=== PATIENT | female | born 1965 | race Caucasian/White ===

== ENCOUNTER 2020-12-20 15:30 | Outpatient (RCR) | payer OTHER, SELFPAY ==
[2014-09-09 13:11] VITALS: BMI 39.1
== END 2021-03-04 23:59 ==
LOC: IMMUN 15:30
PROVIDERS: PCP Family Medicine; Visit Provider Family Medicine
DX: Z23 Encounter for immunization (principal)
CPT/HCPCS: 0001A; 0002A; 91300

== ENCOUNTER → 2021-07-07 15:39 | Outpatient (CLI) | payer OTHER, SELFPAY ==
--- NOTE | 2021-07-07 12:00 | COLBX_PTH ---
PATIENT: DEMI FLAHERTY LOC: [facility] U#:[id number] AGE/SX: 60/F ROOM: RE07/07/[address]: Dr. Vincent Hardy MD : 1965 BED: DIS: SPEC #: [id number] RECD: 07/07/21 15:11 STATUS: SHAYAN RERashard #: [id number] GUSTAVO: 07/07/21 12:[address]: Vincent Hardy DEPT: SURGICAL PATHOLOGY RECD BY: Samanta Huffman ENTERED: 07/08/21 08:38 SP TYPE: COLON BX OTHR DR: Dr. Campos Leon, [facility] Tissues: Ascending colon Procedures: Surgery Specimen Level IV HEADER OPERATION: Colonoscopy and polypectomy PRE-OP DIAGNOSIS: High-risk screening / polyp TISSUE SUBMITTED: Mid ascending polyp, rule out adenoma MICROSCOPIC DIAGNOSIS Mid ascending colon polyp, polypectomy: Tubulovillous adenoma. SJ:galo 07/09/2021 MICROSCOPIC DESCRIPTION Slides are reviewed. GROSS DESCRIPTION Received in fixative is one container labeled with the patient's name and designated mid ascending polyp. The specimen consists of a piece of saez-pink polyp measuring 1 x 0.6 x 0.5 cm. The specimen is bisected and submitted entirely in one cassette. / SJ:rg 07/08/21 TC:1 CPT: 72107
== END ==
PROVIDERS: PCP Family Medicine; Referring Provider Internal Medicine Gastroenterology; Visit Provider Internal Medicine Gastroenterology
DX: K63.5 Polyp of colon (principal)
CPT/HCPCS: 88305

== ENCOUNTER 2021-08-25 11:43 | Outpatient (CLI) | payer OTHER, SELFPAY ==
[2021-08-25] MEDS: 0.9% Saline Lock 10 ML Syringe IV (12:01)
[2021-08-25 12:02] VITALS: BP 144/62; PULSE 89; RESP 16; TEMP 36.8; O2SAT 99; BMI 41.5
[2021-08-25 13:24] VITALS: BP 120/62; PULSE 73; RESP 16; TEMP 36.8; O2SAT 98
[2021-08-25 14:13] VITALS: BP 125/74; PULSE 77; RESP 16; TEMP 36.5; O2SAT 97
== END 2021-08-25 14:30 | disposition home or self-care (01) ==
LOC: MS3OUT 11:43 → MS3 11:44
PROVIDERS: PCP Family Medicine; Referring Provider Nurse Practitioner Adult Health; Visit Provider Nurse Practitioner Adult Health
DX: Z23 Encounter for immunization (principal); U07.1 COVID-19
CPT/HCPCS: J7050; M0245; Q0245; A4216

== ENCOUNTER 2021-12-12 09:45 | Outpatient (CLI) | payer OTHER, SELFPAY ==
--- NOTE | 2021-12-12 09:47 | BI_ITS ---
MAMMOGRAPHY - BILATERAL SCREENING 3-D TOMOSYNTHESIS REASON FOR EXAM: Female, 56 years old. SCREENING PERTINENT HISTORY: No significant family history. TECHNIQUE: 2-D mammograms and 3-D Tomosynthesis of the breast (s) were performed. CAD was performed. COMPARISON: 09/08/2019 FINDINGS: The breast composition is heterogeneously dense that can obscure small breast masses. Scattered benign calcifications are seen. 5 mm oval circumscribed low-density mass in the retroareolar right breast at anterior depth and focal compression views are recommended for further evaluation. No dominant mass left breast. No suspicious calcifications.. No architectural distortion is identified. There is no skin thickening or retraction. BI/SCRN MAMM (CAD)W/REDD BILAT IMPRESSION: 5 mm oval circumscribed low-density mass in the retroareolar right breast and focal compression views recommended for further evaluation. ASSESSMENT CATEGORY: BIRADS Category 0: Incomplete. Need additional imaging evaluation as above. A letter regarding these results will be sent to the patient by the facility within 30 days. FOLLOW UP RECOMMENDATION: Additional imaging recommended as above. (E) Approximately 10% of breast cancers are not detected by mammography. A normal mammogram should not delay biopsy of a clinically suspicious abnormality. Electronically Signed: Sandeep Antunez MD at 16:28 EDT ,
== END 2021-12-12 23:59 | disposition home or self-care (01) ==
PROVIDERS: PCP Family Medicine; Referring Provider Family Medicine; Visit Provider Family Medicine
DX: Z12.31 Encounter for screening mammogram for malignant neoplasm of breast (principal)
CPT/HCPCS: 77063; 77067

== ENCOUNTER 2021-12-19 08:03 | Outpatient (CLI) | payer OTHER, SELFPAY ==
--- NOTE | 2021-12-19 08:57 | BI_ITS ---
MAMMOGRAPHY - UNILATERAL DIAGNOSTIC: RIGHT BREAST REASON FOR EXAM: Female, 56 years old. Abnormal screening mammogram. PERTINENT HISTORY: Non-contributory. TECHNIQUE: Compression spot views of the right breast and intracranial cavity that and mediolateral oblique projections were obtained. CAD: Full Field Digital Mammography with Computer Added Detection was performed. COMPARISON: Comparison is made with prior examination 12/12/2021. FINDINGS: Breast Composition: The breasts are heterogeneously dense, which may obscure small masses. Possible 5 mm retroareolar nodule. Correlation with ultrasound is recommended. No other significant abnormalities are identified. BI/DIAG MAMM W/CAD, UNILAT IMPRESSION: Findings suggestive of a 5 mm retroareolar nodule of the right breast. Correlation with ultrasound is recommended. ASSESSMENT CATEGORY: BIRADS Category 0: Incomplete. Need additional imaging evaluation. A letter regarding these results will be sent to the patient by the facility within 30 days. Approximately 10% of breast cancers are not detected by mammography. A normal mammogram should not delay biopsy of a clinically suspicious abnormality. Electronically Signed: Evans Wall MD at 11:02 EDT ,
--- NOTE | 2021-12-19 08:57 | US_ITS ---
STUDY: ULTRASOUND BREAST - RIGHT REASON FOR EXAM: Female, 56 years old. Abnormal screening mammogram. TECHNIQUE: Axial and longitudinal images of the RIGHT breast were performed with a high resolution ultrasound transducer. # OF IMAGES: 17 COMPARISON: Comparison is made with prior mammogram dated 12/12/2021 and 12/19/2021. FINDINGS: RIGHT Breast: The mammographic abnormality corresponds to a 5 mm x 6 mm x 6 mm hypoechoic solid nodule with increased vascularity. This is at the 12 o''clock position the breast in the retroareolar region. Biopsy recommended. US/Breast Limited Unilateral IMPRESSION: The mammographic and amount to corresponds to a 5 mm x 6 mm x 6 mm hypoechoic solid nodule with vascularity at the 12 o''clock position in the breast in the retroareolar region. Biopsy recommended. ASSESSMENT CATEGORY: BIRADS Category 4: Suspicious - Biopsy Should Be Considered. A letter regarding these results will be sent to the patient by the facility within 30 days. Electronically Signed: Evans Wall MD at 14:33 EDT ,
== END 2021-12-19 23:59 | disposition home or self-care (01) ==
PROVIDERS: PCP Family Medicine; Referring Provider Family Medicine; Visit Provider Family Medicine
DX: R92.8 Other abnormal and inconclusive findings on diagnostic imaging of breast (principal)
CPT/HCPCS: 76642; 77065

== ENCOUNTER 2022-01-01 11:07 | Outpatient (CLI) | payer OTHER, SELFPAY ==
--- NOTE | 2022-01-01 | IMM_PTH ---
PATIENT: DEMI FLAHERTY LOC: [facility] U#:[id number] AGE/SX: 56/F ROOM: RE01/01/[address]: Dr. Alli Block MD : 1965 BED: DIS: 01/01/2022 SPEC #: [id number] RECD: 01/02/22 13:18 STATUS: SHAYAN RERashard #: [id number] GUSTAVO: 01/01/22 00:[address]: Alli Block DEPT: IMMUNOHISTOCHEMISTRY RECD BY: Kenyatta Hallman ENTERED: 01/02/22 13:18 SP TYPE: IMMUNO OTHR DR: Dr. Campos Leon DO Tissues: Right breast, NOS Procedures: CK8 (initial) SMA (add) CALPONIN-1 (add) P40 (add) PHYSICIAN & INSTITUTION [place] [id number] SPECIMEN INFORMATION: Tissue Source: Right breast Clinical Info: Right breast nodule Specimen Number: [id number] CPT code: 35835, 59789 x3 METHODOLOGY: Deparaffinized sections of prefer/formalin-fixed tissue or PAP/DQ stained slides are incubated with monoclonal/polyclonal antibodies/oligonucleotide probes. Localization is made via biotin free immunoperoxidase method. Appropriate controls are performed and reacted as expected. Results on target cell population are indicated in the following table: RESULTS: ANTIBODY / CLONE RESULT CK8 (24xjecN16) positive Calponin-1 (XO675B) positive P40 (BC28) positive Actin (1A4) positive These tests were developed and their performance characteristics determined by [facility]. They may not have been cleared or approved by the U.S. Food and Drug Administration. The FDA has determined that such clearance or approval is not necessary. The above immunohistochemical/dualISH markers are ordered and reviewed by the Pathologist. INTERPRETATION: Right breast, biopsy: Consistent with fragments of intraductal papilloma. AM:galo 01/05/2022
--- NOTE | 2022-01-01 | BRBX_PTH ---
PATIENT: DEMI FLAHERTY LOC: [facility] U#:[id number] AGE/SX: 56/F ROOM: RE01/01/[address]: Dr. Alli Block MD : 1965 BED: DIS: 01/01/2022 SPEC #: [id number] RECD: 01/01/22 11:04 STATUS: SHAYAN RERashard #: [id number] GUSTAVO: 01/01/22 00:[address]: Alli Block DEPT: SURGICAL PATHOLOGY RECD BY: Samanta Huffman ENTERED: 01/01/22 12:29 SP TYPE: BREAST BX OTHR DR: Dr. Campos Leon DO Tissues: Right breast, NOS Procedures: Surgery Specimen Level IV HEADER OPERATION: Right breast biopsy PRE-OP DIAGNOSIS: Right breast nodule TISSUE SUBMITTED: Right breast tissue MICROSCOPIC DIAGNOSIS Right breast, core biopsy: Consistent with intraductal papilloma. AM:galo 01/02/2022 COMMENT Immunohistochemistry ([id number]) supports the above diagnosis. MICROSCOPIC DESCRIPTION Slides are reviewed. GROSS DESCRIPTION Received in fixative is one container labeled with the patient's name and designated right breast tissue. The specimen consists of multiple irregular and elongated fragments of saez tissue that in aggregate measure 1.5 x 1 x 0.2 cm. The specimen is totally submitted in one cassette. / AM:galo 01/01/2022 TC:5 CPT: 82484
== END 2022-01-01 23:59 | disposition home or self-care (01) ==
LOC: LABSPEC 11:08
PROVIDERS: PCP Family Medicine; Referring Provider Surgery; Visit Provider Surgery
DX: N63.10 Unspecified lump in the right breast, unspecified quadrant (principal)
CPT/HCPCS: 88305; 88341; 88342

== ENCOUNTER 2022-01-23 08:42 | Day surgery (SDC) | payer OTHER, SELFPAY ==
[2022-01-23] MEDS: Lactated Ringers 1,000 ML 15 ML IV (09:00)
[2022-01-23 09:15] VITALS: BP 141/69; PULSE 70; RESP 18; TEMP 36.6; O2SAT 98; BMI 41.9
--- NOTE | 2022-01-23 09:21 | HP.PCM_ITS ---
History and Physical Date of Admission: 01/23/22 Intake Vital Signs 01/16/22 13:54 Height 5 ft 1 in Weight: 224 lb BMI 42.3 BP 146/76 H Blood Pressure Location Rt brachial Position Sitting Respiration 18 Pulse 81 Pulse Source Monitor Temp 97.9 F Temp Source Temporal Pulse Oximetry (%) 98 Oxygen Delivery Method room air Intake Visit Reasons: DISCUSS RESULTS FROM BREAST BIOPSY Chief Complaint: Discuss surgery Folding Machine Operator Required: No Accompanied by: Is patient in pain?: No Allergies acetaminophen [From Vicodin] Allergy (Mild, Verified 01/16/22 13:57) Nausea hydrocodone [From Vicodin] Allergy (Mild, Verified 01/16/22 13:57) Nausea propoxyphene Allergy (Mild, Verified 01/16/22 13:57) Nausea codeine Adverse Reaction (Verified 01/16/22 13:57) Upset Stomach Medications meloxicam [Mobic] 15 mg PO DAILY 09/09/14 [History Confirmed 01/16/22] albuterol [Ventolin] 180 mcg INHALATION Q6H PRN 08/25/21 [History Confirmed 01/16/22] atorvastatin 20 mg PO QHS 08/25/21 [History Confirmed 01/16/22] bupropion HCl 200 mg PO DAILY 08/25/21 [History Confirmed 01/16/22] fluticasone furoate-vilanterol [Breo Ellipta] 1 inh INHALATION DAILY 08/25/21 [History Confirmed 01/16/22] insulin regular hum U-500 conc [Humulin R U-500 (Conc) Kwikpen] 14 unit SUBCUT QHS 08/25/21 [History Confirmed 01/16/22] insulin regular hum U-500 conc [Humulin R U-500 (Conc) Kwikpen] 40 unit SUBCUT DAILY 08/25/21 [History Confirmed 01/16/22] pantoprazole 40 mg PO DAILY 08/25/21 [History Confirmed 01/16/22] sucralfate 1 g PO TID 08/25/21 [History Confirmed 01/16/22] dgdgguicbc-yymgrsydsfhty-fmtdffii 50 mg-300 mg-40 mg capsule 1 cap PO BID PRN cap 12/12/21 [History Confirmed 01/16/22] hyoscyamine sulfate 0.125 mg tablet 0.125 mg PO Q6H PRN tab 12/12/21 [History Confirmed 01/16/22] lisinopril 20 mg-hydrochlorothiazide 25 mg tablet 1 tab PO DAILY 12/12/21 [History Confirmed 01/16/22] mometasone 0.1 % topical cream 1 applic TOPICAL DAILY 12/12/21 [History Confirmed 01/16/22] tramadol 50 mg tablet 50 mg PO .QID PRN tab 12/12/21 [History Confirmed 01/16/22] Subjective Details: Patient has had no issues since biopsy. 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 Localized osteoarthritis of left knee Lumbar degenerative disc disease Mixed hypercholesterolemia and hypertriglyceridemia Morbid obesity Nausea Rheumatoid arthritis Tension headache, chronic Thyroid nodule Surgical History History of back surgery History of carpal tunnel release History of right breast biopsy (~12/2021) Hx of colonoscopy S/P meniscectomy Family History Mother , [place], age 59 Sudden cardiac Myocardial infarction Hypertension Heart disease High cholesterol Father , multiple myeloma, age 50 Cancer multiple myeloma Brother Hypertension Depression Sister Hypertension Other Colon cancer Social History Smoking Status: Never smoker Tobacco: How many years used: 10 alcohol intake: former substance use type: does not use Assessment and Plan (No Qualifiers) Assessment and Plan (1) Breast mass, right: Status: Acute Plan - Dr. Alli Block MD: Patient is here to follow-up after biopsy of a right breast retroareolar mass. This came back as intraductal papilloma. I did recommend central duct excision to her as there is a risk of progression to cancer leaving a papilloma in place. I discussed this with her in detail. I discussed the risks including but not limited to bleeding, infection, recurrence of papilloma. Patient understands the risks and is willing to proceed with central ductal excision. Alli Block MD Pager: [facility] [address] [place] [address], [address] [place] [address] Office: I have re-examined the patient. There are no clinical changes since date of exam.
[2022-01-23 09:35] LABS: Bedside Glucose 234 mg/dL (74-106)
--- NOTE | 2022-01-23 10:15 | BREAST_PTH ---
PATIENT: DEMI FLAHERTY LOC: [facility] [place] U#:[id number] AGE/SX: 56/F ROOM: RE01/23/[address]: Dr. Alli Block MD : 1965 BED: DIS: 01/23/2022 SPEC #: [id number] RECD: 01/23/22 14:58 STATUS: SHAYAN RERashard #: [id number] GUSTAVO: 01/23/22 10:[address]: Alli Block DEPT: SURGICAL PATHOLOGY RECD BY: Samanta Huffman ENTERED: 01/26/22 08:22 SP TYPE: BREAST OTHR DR: Dr. Campos Leon DO Tissues: A - Right breast, NOS B - Right breast, NOS Procedures: Surgery Specimen Level IV HEADER OPERATION: Breast Central Ductal Excision PRE-OP DIAGNOSIS: Breast mass, right TISSUE SUBMITTED: A - Right breast central duct, short suture - superior, long suture - lateral, B - New superior margin MICROSCOPIC DIAGNOSIS A. Right breast, central duct, excisional biopsy: Intraductal papilloma with focal atypia. Negative for malignancy. B. New superior margin: Fibrocystic changes and intraductal hyperplasia with focal atypia. Negative for malignancy. SJ:galo 01/27/2022 COMMENT Clinical correlation and appropriate follow up are necessary. Case has been reviewed in consultation with Dr. Vanegas who concurs with the above diagnosis. IDC:AM MICROSCOPIC DESCRIPTION Slides are reviewed. GROSS DESCRIPTION A - Received in fixative is one container labeled with the patient's name and designated right breast central duct, short suture - superior, long suture - lateral. The specimen consists of a piece of fibroadipose tissue measuring 3.5 x 4 x 2 cm. The specimen is oriented by sutures as follows: short - superior, long - lateral. The specimen is inked as follows: anterior - yellow, posterior - black, superior - blue, inferior - green, medial - red and lateral - orange. Serial sections reveal a biopsy cavity with adjacent saez, indurated area measuring 0.5 cm in greatest dimension. This area is close to anterior margin of the specimen. The entire specimen is submitted in nine cassettes. Cassette 1 contains the most medial portion and cassette 9 contains the most lateral portion. B - Received in fixative is one container labeled with the patient's name and designated new superior margin. The specimen consists of a piece of fibroadipose tissue measuring 2.5 x 2 x 2 cm. One surface shows focal congested area that may represent old margin and inked blue, opposite margin is inked black that may represent new margin. The entire specimen is submitted in four cassettes. / SJ:galo 01/26/2022 TC:5 CPT: 15647, 94503
[2022-01-23] MEDS: Cefazolin 2 GM in 0.9% Normal Saline 100 ML IV (10:30)
[2022-01-23 11:06] VITALS: BP 130/108; BP 141/69; PULSE 76; RESP 18; TEMP 36.7; O2SAT 100
[2022-01-23 11:15] VITALS: BP 123/64; BP 141/69; PULSE 73; RESP 16; O2SAT 100
--- NOTE | 2022-01-23 11:15 | PCM.OPRPT ---
Problems Associated Problem List Diagnoses (1) Papilloma of right breast: Report of Operation Date of Procedure: 01/23/22 Pre-Operative Diagnosis: Papilloma the right breast Post-Operative Diagnosis: Same Surgery/Procedure Performed:: Central ductal excision of the right breast Specimen's removed: Right breast central ductal excision Description of Procedure: Patient was brought to the operating room and general anesthesia was induced. The right breast was prepped and draped in usual sterile fashion. A curvilinear incision was marked underneath the nipple at the areolar junction and injected with local anesthetic. Next an incision was made with a scalpel at the infra areolar junction to the breast and flaps were raised using electrocautery. Next the posterior nipple tissue and central ductal area was dissected free using electrocautery. It was marked and sent for pathology. The cavity was irrigated and suctioned dry and hemostasis was obtained using electrocautery. The incision was then closed with interrupted 3-0 Vicryl suture in a running 4-0 Monocryl suture. Dermabond glue was applied. Patient was then taken to PACU in stable condition. Patient tolerated the procedure well. Admit VTE Documentation VTE Mechan Device Prophylaxis: SCD's
--- NOTE | 2022-01-23 11:16 | EX.PCM.DISCH ---
Discharge Instructions Procedure Breast Surgery Diet Discharge Diet: No restrictions Activity Discharge Activity: May Not Drive (for 2-3 days or while taking narcotic pain medications.) May shower in (days): 1 Lifting Restrictions: 10 lbs for 1 week Dressing / Incision Call your doctor if your incision/area has: Continuous Slow Oozing, Sudden Increased Bleeding, Increased Pain/ Swelling, Increased Redness, Foul Smelling Discharge and Swelling at the incision site Call your doctor if you observe: Fever of 101 or Higher Suture Line Care: Avoid Pulling/Pushing and Avoid Pinching/Bending Cleanse incision/area with: Soap & Water Follow Up Care Please Follow Up With: Alli Block MD When: Please call to schedule 2 week follow up appointment. [phone] Test Results: Test results from this visit will be discussed in further detail at your follow-up appointment, if applicable. Discharge Plan Admission Attending Provider: Alli Block Primary Care Provider: Campos Leon Discharge Orders/Prescriptions Prescriptions: New oxycodone-acetaminophen [Percocet] 5-325 mg tablet 1 tab PO Q4H PRN (Reason: pain) 5 Days Qty: 20 RF: 0 ondansetron 4 mg tablet,disintegrating 4 mg PO Q6H PRN (Reason: nausea and vomiting) Qty: 7 RF: 0 No Action tramadol 50 mg tablet 50 mg PO .QID PRN (Reason: Pain) RF: 0 hyoscyamine sulfate 0.125 mg tablet 0.125 mg PO Q6H PRN (Reason: FIBER) RF: 0 mometasone 0.1 % cream 1 applic topical DAILY RF: 0 ixugjwqxwq-cxsmtlcifizdj-voyq [Fioricet] 50-300-40 mg capsule 1 cap PO BID PRN (Reason: MIGRAINES) RF: 0 lisinopril-hydrochlorothiazide 20-25 mg tablet 1 tab PO DAILY RF: 0 meloxicam [Mobic] 15 MG tablet 15 mg PO DAILY RF: 0 atorvastatin 20 mg Tablet 20 mg PO QHS RF: 0 sucralfate 1 gram Tablet 1 g PO TID RF: 0 pantoprazole 40 mg Tablet,Delayed Release (Dr/Ec) 40 mg PO DAILY RF: 0 Ventolin 90 mcg/actuation Aerosol 180 mcg INHALATION Q6H PRN (Reason: sob/wheezing) RF: 0 bupropion HCl 200 mg Tablet Sustained-Release 12 Hr 200 mg PO DAILY RF: 0 Breo Ellipta 100-25 mcg/dose Blister With Device 1 inh INHALATION DAILY RF: 0 Humulin R U-500 (Conc) Kwikpen 500 unit/mL (3 mL) Insulin Pen 40 unit SUBCUT DAILY RF: 0 Humulin R U-500 (Conc) Kwikpen 500 unit/mL (3 mL) Insulin Pen 14 unit SUBCUT QHS RF: 0 Referrals / Follow Up: Campos Leon DO [Primary Care Provider] - Disposition Disposition (needs filled in before D/C Order can be placed): Home, Self Care
[2022-01-23 11:30] VITALS: BP 124/58; BP 141/69; PULSE 69; RESP 16; O2SAT 96
[2022-01-23 11:45] VITALS: BP 109/61; BP 141/69; PULSE 68; RESP 16; TEMP 36.6; O2SAT 93
[2022-01-23 12:21] VITALS: BP 110/78; BP 141/69; PULSE 72; RESP 16; O2SAT 98
== END 2022-01-23 12:54 | disposition home or self-care (01) ==
LOC: SDC 08:43 → AC 08:45
PROVIDERS: PCP Family Medicine; Referring Provider Surgery; Visit Provider Surgery
PROC: (CPT 19120; principal; 2022-01-23 10:00)
DX: D24.1 Benign neoplasm of right breast (principal); E11.9 Type 2 diabetes mellitus without complications; K21.9 Gastro-esophageal reflux disease without esophagitis; I10 Essential (primary) hypertension; J45.909 Unspecified asthma, uncomplicated
CPT/HCPCS: 19120; 82962; 87426; 88305; J7120; J2405

== ENCOUNTER 2022-03-09 07:12 | Day surgery (SDC) | payer OTHER, SELFPAY ==
--- NOTE | 2022-03-03 10:41 | NURSING ---
At PAT phone interview, pt reports she was COVID (+) on 02/19/22 with symptoms. Symptoms has subsided. Tested negative 02/27/22. instructed to inform Dr Robles's office.
--- NOTE | 2022-03-09 07:30 | PCM.HP.BLA ---
History and Physical Date of Admission: 03/09/22 DEMI FLAHERTY, is a 56 F who presents to the office today for GERD, referred by primary care to get EGD since it has been at least 5 years since her last one. Never diagnosed w/ Esquivel's esophagus. She is on pantoprazole 40 mg QD; when she ran out of it for 2 wks and had burning reflux up to her mouth, couldn't lie flat in bad. She takes sucralfate BID-TID; has nausea if she doesn't take it. She takes hyoscyamine prn, uses it about once a month for nervous bowel, gets urgent diarrhea. No bowel issues otherwise. No melena or hematochezia. Food not getting stuck, but she does note that she is having some issues with swallowing recently--with just water or taking pills, about once a day, she feels like water almost goes into lungs, kind of chokes, coughs and then is ok. Most recent colonoscopy was 07/07/[address] Hardy, 1 cm tubulovillous adenoma. Comorbidities include depression, DM, HTN, dyslipidemia, TIEN, DDD ROS Const Constitutional: No fatigue, fever(s), headache(s), weight change, sleep problems, abnormal sleep pattern or change in appetite ENT ENT: No headache(s), difficulty swallowing, hoarseness or sore throat Resp Respiratory: No cough, hemoptysis or shortness of breath Cardio Cardiology: Positive for leg pain with exertion; No chest pain at rest or generalized swelling Gastro GI: No abdominal pain, belching, bloating, change in bowel habits, change in stool character, coffee ground emesis, constipation, cramping, diarrhea, heartburn, difficulty swallowing, feeling full early, excessive flatus, incontinent of stools, Vomiting blood/hematemesis, Blood in stool, loose stools, Black,tarry stools, nausea/dyspepsia, pain with swallowing or vomiting Genitourinary-Female: Positive for urinary incontinence Musc Musculoskeletal: Positive for joint pain, back pain, joint swelling, muscle weakness, stiffness, Arthritis, sciatica, leg pain at night and leg pain with exertion; No numbness or tingling Skin Skin: No itchy eyes or rash Neuro Neurology: No behavioral changes, confusion, headache(s), numbness or tingling Psych Psychiatric: No abnormal sleep pattern, No anxiety, No behavioral changes, No change in appetite, No confusion and No depression Endo Endocrine: No cold intolerance, fatigue, heat intolerance, increased thirst/drinking or weight change Aller/Imm Allergy/Immunologic: No food intolerance or itchy eyes Ajith/Lymp Hematologic/Lymphatic: No easy bleeding, easy bruising or enlarged lymph nodes Exam Const General: cooperative, comfortable, no acute distress, well developed and well groomed Nutritional Appearance: obese GI Inspection: obesity Palpation: soft and nontender Quality Reporting Tobacco Screening ([facility] 138) Smoking Status: Never smoker Assessment and Plan Assessment and Plan (1) GERD (gastroesophageal reflux disease): Status: Acute (2) Hx of colonic polyp: Status: Acute (3) Nausea: Status: Acute Plan - Bibiana Noble RESOURCE CONSERVATION MANAGER, RESOURCE CONSERVATION MANAGER-C: 56-year-old female with GERD, IBS, nausea, history of colon polyp. Symptoms of GERD are controlled with pantoprazole 40 mg daily. Her nausea is controlled with Carafate twice daily to 3 times daily. Intermittent IBS symptoms are managed with as needed hyoscyamine. She has diabetes, she has obesity. Consider gastroparesis. Consider fatty liver: We discussed risk of fatty liver, offered liver ultrasound, she declines for now. Consider barium swallow, she declines, would like to proceed just with the EGD at this time. Will evaluate for stricture, Esquivel's esophagus, gastritis, gastroparesis. It is scheduled for March 02, instructions reviewed. 2-week follow-up after that to discuss biopsy results with Dr. Robles. I have re-examined the patient. There are no clinical changes since date of exam.
[2022-03-09 07:37] VITALS: BP 133/79; PULSE 75; RESP 16; TEMP 36.4; O2SAT 97; BMI 41.8
[2022-03-09] MEDS: Lactated Ringers 1,000 ML 15 ML IV (07:39)
[2022-03-09] MEDS: Insulin Lispro 100 UNIT/ML INSULN.PEN 8 UNIT SC (07:44)
[2022-03-09 08:15] LABS: Bedside Glucose 310 mg/dL (74-106)
--- NOTE | 2022-03-09 08:15 | EGD_PTH ---
PATIENT: DEMI FLAHERTY LOC: EN U#:[id number] AGE/SX: 57/F ROOM: RE03/09/[address]: Dr. Yunior Robles DO : 1965 BED: DIS: 03/09/2022 SPEC #: [id number] RECD: 03/09/22 12:48 STATUS: SHAYAN RERashard #: [id number] GUSTAVO: 03/09/22 08:[address]: Yunior Robles DEPT: SURGICAL PATHOLOGY RECD BY: Samanta Huffman ENTERED: 03/09/22 13:28 SP TYPE: EGD BIOPSY OT DR: Dr. Campos Leon DO Tissues: A - Duodenum, NOS B - Gastric mucous membrane C - Gastric mucous membrane D - Esophagus, NOS Procedures: Special Stain Group II Surgery Specimen Level IV Alcian Blue/PAS (control) HEADER OPERATION: EGD (MAC), biopsy, dilation PRE-OP DIAGNOSIS: GERD TISSUE SUBMITTED: A ? Duodenum biopsy, B ? Pylorus biopsy, C ? Gastric body biopsy, D ? Distal esophagus biopsy MICROSCOPIC DIAGNOSIS A. Duodenum, biopsy: No pathologic change. B. Pylorus, biopsy: Chronic active gastritis. C. Gastric body, biopsy: Chronic gastritis. See comment. D. Distal esophagus, biopsy: Gastroesophageal junctional mucosa with chronic inflammation. Focal changes of reflux. No evidence of goblet cell metaplasia. See comment. AM:galo 03/10/2022 COMMENT C. The results of immunohistochemistry for Helicobacter pylori will be reported separately ([id number]). D. Alcian blue/PAS stain with matched control supports the above diagnosis. MICROSCOPIC DESCRIPTION Slides are reviewed. GROSS DESCRIPTION A - Received in fixative is one container labeled with the patient's name and designated duodenum biopsy. The specimen consists of two irregular fragments of light saez soft tissue that in aggregate measure 0.6 x 0.3 x 0.1 cm. The specimen is totally submitted in one cassette. B - Received in fixative is one container labeled with the patient's name and designated pylorus biopsy. The specimen consists of two irregular fragments of light saez soft tissue that in aggregate measure 0.5 x 0.2 x 0.1 cm. The specimen is totally submitted in one cassette. C - Received in fixative is one container labeled with the patient's name and designated gastric body biopsy. The specimen consists of two irregular fragments of light saez soft tissue that in aggregate measure 0.5 x 0.3 x 0.1 cm. The specimen is totally submitted in one cassette. D - Received in fixative is one container labeled with the patient's name and designated distal esophagus. The specimen consists of two irregular fragments of light saez soft tissue that in aggregate measure 0.6 x 0.3 x 0.1 cm. The specimen is totally submitted in one cassette. / SJ:rg 03/09/2022 TC:3 CPT: 47722 x4, 10614
--- NOTE | 2022-03-09 08:15 | IMM_PTH ---
PATIENT: DEMI FLAHERTY LOC: EN U#:[id number] AGE/SX: 57/F ROOM: RE03/09/[address]: Dr. Yunior Robles DO : 1965 BED: DIS: 03/09/2022 SPEC #: [id number] RECD: 03/09/22 13:40 STATUS: SHAYAN REQ #: [id number] GUSTAVO: 03/09/22 08:[address]: Yunior Robles DEPT: IMMUNOHISTOCHEMISTRY RECD BY: Kenyatta Hallman ENTERED: 03/09/22 13:40 SP TYPE: IMMUNO OTHR DR: Dr. Campos Leon DO Tissues: C - Stomach, NOS Procedures: H Pylori (initial) PHYSICIAN & INSTITUTION [place] [id number] SPECIMEN INFORMATION: Tissue Source: C ? Gastric body biopsy Clinical Info: GERD Specimen Number: [id number] CPT code: 84724 METHODOLOGY: Deparaffinized sections of prefer/formalin-fixed tissue or PAP/DQ stained slides are incubated with monoclonal/polyclonal antibodies/oligonucleotide probes. Localization is made via biotin free immunoperoxidase method. Appropriate controls are performed and reacted as expected. Results on target cell population are indicated in the following table: RESULTS: ANTIBODY / CLONE RESULT Block C H Pylori (polyclonal) negative These tests were developed and their performance characteristics determined by [facility]. They may not have been cleared or approved by the U.S. Food and Drug Administration. The FDA has determined that such clearance or approval is not necessary. The above immunohistochemical/dualISH markers are ordered and reviewed by the Pathologist. INTERPRETATION: C. Gastric body, biopsy: Negative for Helicobacter pylori organisms. AM:galo 03/11/2022
[2022-03-09 08:30] VITALS: BP 118/59; BP 133/79; PULSE 70; RESP 16; TEMP 36.9; O2SAT 95
[2022-03-09 08:35] VITALS: BP 118/62; BP 133/79; PULSE 71; RESP 16; O2SAT 94
--- NOTE | 2022-03-09 08:37 | OP.CCLET_ITS ---
06/30/2022 Campos Leon Re : Upper GI endoscopy procedure for Rhonda Powell Heidir Edward This procedure was performed on Wednesday, March 09, 2022. My impressions and recommendations are as follows: Impressions : - Esophageal plaques were found, consistent with candidiasis. - Z-line irregular, 38 cm from the incisors. Biopsied. - Benign-appearing esophageal stenosis. Dilated. - Gastritis. Biopsied. - Erythematous duodenopathy. Recommendations : - Discharge patient to home. - Resume previous diet. - Continue present medications. - Await pathology results. - Diflucan (fluconazole) 100 mg PO daily for 2 weeks. My findings are described in the full procedure note, which is enclosed. If I can be of further assistance, please feel free to contact me at . Sincerely, Yunior Friend, 03/09/2022 8:36:47 AM This report has been signed electronically.
--- NOTE | 2022-03-09 08:37 | OP.EGD_ITS ---
Patient Name: Rhonda Powell Procedure Date: 03/09/2022 7:53 AM Date of : 1965 Age: 57 Procedure: Upper GI endoscopy Indications: Epigastric abdominal pain, Dysphagia, Heartburn Providers: Yunior Robles DO Referring MD: Campos Leon Medicines: Monitored Anesthesia Care Patient Profile: This is a 57 year old female. Refer to note in patient chart for documentation of history and physical. Patient has symptoms of dysphagia with both liquids and solids and chronic heartburn. Complications: No immediate complications. Procedure: Pre-Anesthesia Assessment: - Prior to the procedure, a History and Physical was performed, and patient medications and allergies were reviewed. The risks and benefits of the procedure and the sedation options and risks were discussed with the patient. All questions were answered and informed consent was obtained. Patient identification and proposed procedure were verified by the physician in the pre-procedure area. Mental Status Examination: alert and oriented. Airway Examination: normal oropharyngeal airway and neck mobility. Respiratory Examination: clear to auscultation. CV Examination: normal. Prophylactic Antibiotics: The patient does not require prophylactic antibiotics. Prior Anticoagulants: The patient has taken no previous anticoagulant or antiplatelet agents. After reviewing the risks and benefits, the patient was deemed in satisfactory condition to undergo the procedure. The anesthesia plan was to use moderate sedation / analgesia (conscious sedation). Immediately prior to administration of medications, the patient was re-assessed for adequacy to receive sedatives. The heart rate, respiratory rate, oxygen saturations, blood pressure, adequacy of pulmonary ventilation, and response to care were monitored throughout the procedure. The physical status of the patient was re-assessed after the procedure. After obtaining informed consent, the endoscope was passed under direct vision. Throughout the procedure, the patient's blood pressure, pulse, and oxygen saturations were monitored continuously. The gastroscope was introduced through the mouth, and advanced to the second part of duodenum. The upper GI endoscopy was accomplished without difficulty. The patient tolerated the procedure well. Scope In: 8:13:01 AM Scope Out: 8:22:47 AM Total Procedure Duration Time 0 hours 9 minutes 46 seconds Findings: Diffuse, white plaques were found in the entire esophagus. The Z-line was irregular and was found 38 cm from the incisors. Biopsies were taken with a cold forceps for histology. Verification of patient identification for the specimen was done. Estimated blood loss was minimal. One benign-appearing, intrinsic stenosis was found 21 cm from the incisors. This stenosis was moderately severe and measured 6 cm (in length). A guidewire was placed and the scope was withdrawn. Dilation was performed with a Savary dilator with no resistance at 51 Fr. The dilation site was examined and showed moderate improvement in luminal narrowing. Estimated blood loss was minimal. Patchy mild inflammation characterized by erosions was found in the gastric body and in the prepyloric region of the stomach. Biopsies were taken with a cold forceps for histology. Verification of patient identification for the specimen was done. Estimated blood loss was minimal. Patchy moderately erythematous mucosa without active bleeding and with no stigmata of bleeding was found in the duodenal bulb. Impression: - Esophageal plaques were found, consistent with candidiasis. - Z-line irregular, 38 cm from the incisors. Biopsied. - Benign-appearing esophageal stenosis. Dilated. - Gastritis. Biopsied. - Erythematous duodenopathy. Recommendation: - Discharge patient to home. - Resume previous diet. - Continue present medications. - Await pathology results. - Diflucan (fluconazole) 100 mg PO daily for 2 weeks. Procedure Code(s): --- Professional --- 91563, Esophagogastroduodenoscopy, flexible, transoral; with insertion of guide wire followed by passage of dilator(s) through esophagus over guide wire 03133, 59,51, Esophagogastroduodenoscopy, flexible, transoral; with biopsy, single or multiple CPT copyright 2017 [employer]. All rights reserved. The codes documented in this report are preliminary and upon sr. payroll manager review may be revised to meet current compliance requirements. Yunior Robles DO 03/09/2022 8:36:47 AM This report has been signed electronically. Number of Addenda: 1 Note Initiated On: 03/09/2022 7:53 AM Addendum Number: 1 Addendum Date: 06/30/2022 6:25:19 AM MAC was used as sedation for this procedure. Yunior Robles DO 06/30/2022 6:25:25 AM This report has been signed electronically.
[2022-03-09 08:40] VITALS: BP 114/65; BP 133/79; PULSE 68; RESP 16; O2SAT 97
[2022-03-09 08:41] LABS: Bedside Glucose 264 mg/dL (74-106)
[2022-03-09 08:45] VITALS: BP 111/66; BP 133/79; PULSE 68; RESP 16; TEMP 36.4; O2SAT 98
[2022-03-09 09:30] VITALS: BP 133/79
== END 2022-03-09 09:44 | disposition home or self-care (01) ==
LOC: EN 07:16 → AC 07:17
PROVIDERS: PCP Family Medicine; Referring Provider Family Medicine; Visit Provider Internal Medicine Gastroenterology
PROC: 0DJ08ZZ Inspection of Upper Intestinal Tract, Via Natural or Artificial Opening Endoscopic (ICD-10-PCS; CPT 43235; principal; 2022-03-09 08:10)
DX: K21.9 Gastro-esophageal reflux disease without esophagitis (principal); E11.9 Type 2 diabetes mellitus without complications; K22.2 Esophageal obstruction; Z86.010 Personal history of colon polyps; K29.70 Gastritis, unspecified, without bleeding; R13.10 Dysphagia, unspecified; E78.5 Hyperlipidemia, unspecified; G47.33 Obstructive sleep apnea (adult) (pediatric); F32.A Depression, unspecified
CPT/HCPCS: 43239; 43248; 82962; 88305; 88313; 88342; J7120; C1769; J2405

== ENCOUNTER → 2022-07-03 | Outpatient (CLI) | payer OTHER, SELFPAY ==
--- NOTE | 2022-07-03 11:56 | CT_ITS ---
STUDY: CT SCAN LOWER EXTREMITY LEFT REASON FOR EXAM: Female, 57 years old. LEFT KNEE AMANDA RADIATION DOSAGE (If Supplied By Facility): CTDIvol = ( 18.76 ) mGy, DLP = ( 1187.60 ) mGycm. Individualized dose optimization techniques were used for this CT.? TECHNIQUE: Multiple axial tomographic images of the left lower extremity were obtained without intravenous contrast administration. Coronal and sagittal reconstruction was obtained as well. COMPARISON: None. FINDINGS: Imaging of the left hip joint was obtained. The joint spaces well-maintained. No evidence of a fracture or dislocation. Imaging of the left knee joint was obtained. There is a marked degree of joint space narrowing involving the medial compartment of the knee joint with subchondral sclerosis. There is evidence of a degenerative bony spurs along the medial and lateral condyles. There is also evidence of focal ossification in the soft tissues overlying the distal portion of the left femur laterally suggestive of possible myositis ossificans. Marked degree of joint space narrowing with subchondral cysts at the level of the patellofemoral joint. Imaging of the ankle joint was obtained. There is evidence of calcaneal spurs. Degenerative changes seen at the talar cuneiform joint. CT/Extremity Lower without Contra IMPRESSION: Moderate degree of joint space narrowing in the degenerative spurs along the medial compartment of the knee joint as well as patellofemoral joint. Findings suggestive of a myositis ossificans along the lateral anterior aspect of the distal femur. Electronically Signed: Evans Wall MD at 15:07 EDT ,
== END | disposition home or self-care (01) ==
LOC: CT 11:45
PROVIDERS: PCP Family Medicine; Visit Provider Orthopaedic Surgery
DX: M17.12 Unilateral primary osteoarthritis, left knee (principal)
CPT/HCPCS: 73700

== ENCOUNTER → 2022-07-03 | Outpatient (CLI) | payer OTHER, SELFPAY ==
--- NOTE | 2022-07-03 12:04 | RAD_ITS ---
STUDY: X-RAY CHEST REASON FOR EXAM: Female, 57 years old. preop TECHNIQUE: PA and lateral COMPARISON: None. FINDINGS: The lungs are clear and expanded. There is no demonstrated pleural abnormality. Normal size heart. Normal mediastinum and chad. Normal visualized pulmonary arteries. Normal visualized aortic arch and descending thoracic aorta. Dorsal spine demonstrates mild degenerative change.. Normal visualized ribs, clavicles, and shoulders. There is no demonstrated abnormality of the visualized soft tissue structures of the upper abdomen. RAD/Chest PA and Lateral IMPRESSION: No acute cardiopulmonary pathology. Electronically Signed: New Loyd MD at 21:58 EDT ,
[2022-07-03 12:52] LABS: Absolute Lymphocyte Count 1.75 X10^3/uL (0.83-4.51); Absolute Neutrophil Count 5.6 X10^3/uL (2.0-7.7); Basophil# 0.06 X10^3/uL; Basophil% 0.7 % (0-1); Eosinophil# 0.28 X10^3/uL; Eosinophils% 3.4 % (0-5); Hematocrit 44.6 % (37-47); Hemoglobin 14.3 g/dL (12.0-15.0); Lymphocyte # 1.75 X10^3/ul (0.83-4.51); Lymphocyte % 21.2 % (19-41); Mean Corp Hgb Conc 32.1 g/dL (32-36); Mean Corpuscular Hgb 28.7 pg (27.0-32.0); Mean Corpuscular Volume 89.4 fL (81-99); Mean Platelet Vol. 9.5 fl (6.2-12.0); Monocyte# 0.57 X10^3/uL; Monocyte% 6.9 % (0-10); NRBC Flagged by Analyzer 0 % (0-5); Neutrophil # 5.57 X10^3/uL (2.7-7.7); Neutrophil % 67.6 % (47-70); Platelet Count 203 K/mm3 (150-450); RBC Distribution Width CV 14.6 % (11.6-14.6); RBC Distribution Width SD 47.7 fl (35.1-43.9); Red Blood Count 4.99 M/mm3 (4.2-5.4); White Blood Count 8.3 K/mm3 (4.4-11.0)
[2022-07-03 13:22] LABS: Anion Gap 6 (5-15); BUN 17 mg/dL (7-18); BUN/Creat Ratio 17.3 RATIO (10-20); Calcium,Total 10.1 mg/dL (8.5-10.1); Chloride 103 mmol/L (98-107); Creatinine, Serum 0.98 mg/dL (0.55-1.02); EST Glomerular Filtration Rate 62 mL/min (>60); Est Glom Filt Rate - Afr Amer 75 mL/min (>60); Glucose 181 mg/dL (74-106); Potassium 4.5 mmol/L (3.5-5.1); Sodium Level 136 mmol/L (136-145)
[2022-07-03 13:33] LABS: Magnesium 2.4 mg/dL (1.6-2.6); Thyroid Stim Hormone (TSH) 0.72 uIU/mL (0.358-3.74)
[2022-07-03 14:18] LABS: Hemoglobin A1c 6.7 % (3.8-5.6)
== END | disposition home or self-care (01) ==
LOC: PAT 07-31 10:26
PROVIDERS: Anesthesiology; PCP Family Medicine; Visit Provider Orthopaedic Surgery
DX: Z01.818 Encounter for other preprocedural examination (principal)
CPT/HCPCS: 36415; 71046; 80048; 83036; 83735; 84443; 85025; 87081; 93005

== ENCOUNTER → 2022-07-17 | Outpatient (CLI) | payer OTHER, SELFPAY ==
--- NOTE | 2022-07-17 06:08 | ECHOCS_ITS ---
Reason For Study: Abnormal EKG Procedure This was a 2D Doppler, Color Flow transthoracic echocardiogram. The study was technically difficult. Contrast injection was performed. Exam performed in department. Left Ventricle Mildly dilated left ventricle. Mild to moderate segmental systolic dysfunction (see wall motion). The estimated ejection fraction is 40 %. Septal motion consistent with IVCD. Stage 1 diastolic dysfunction. Infero-Basal: Hypokinetic. Basal inferoseptal: Hypokinetic. Basal anteroseptal: Hypokinetic. Mid-Lateral : Hypokinetic. Mid-Posterior: Hypokinetic. Mid-Inferior: Hypokinetic. Mid- inferoseptal : Hypokinetic. Mid-anteroseptal : Hypokinetic. Inferior Edgard : Hypokinetic. Lateral Edgard : Hypokinetic. Septal Edgard : Hypokinetic. Right Ventricle Normal RV size. Normal systolic function. Atria Normal left atrium. Normal right atrium. No doppler evidence for ASD. Mitral Valve There is no mitral annular calcification. Normal mitral valve. Mild (1+) mitral valve insufficiency. Tricuspid Valve Normal tricuspid valve. Aortic Valve Trisinus/trileaflet aortic valve. Mild focal aortic valve calcification. Pulmonic Valve The pulmonic valve is not well visualized. Great Vessels Normal sized aortic root. Pericardium/Pleural No pericardial effusion. Medication 20 gauge I.V. with prn adaptor inserted into left arm. Diluted definity 2ml given slow IV push to enhance endocardial definition. MMode/2D Measurements & Calculations LVIDd: 5.3 cm IVSd: 1.3 cm Ao root diam: 3.3 cm LVIDs: 4.8 cm LVPWd: 1.2 cm LA dimension: 3.5 cm FS: 9.6 % LAV(MOD-sp4): 32.1 ml LVAd ap4: 39.1 cm2 SV(MOD-sp4): 60.3 ml LVLd ap4: 8.6 cm EDV(MOD-sp4): 144.0 ml EDV(sp4-el): 149.8 ml LVAs ap4: 27.8 cm2 LVLs ap4: 7.5 cm ESV(MOD-sp4): 83.8 ml ESV(sp4-el): 86.7 ml EF(MOD-sp4): 41.8 % EF(sp4-el): 42.1 % SV(sp4-el): 63.0 ml LA A4 area: 13.2 cm2 RA A4 area: 10.3 cm2 Time Measurements MV dec time: 0.21 sec Doppler Measurements & Calculations MV E max willis: 82.3 cm/sec Lat Peak E' Willis: 8.1 cm/sec Med Peak E' Willis: 6.3 cm/sec MV A max willis: 81.8 cm/sec E/E' lat: 10.2 E/E' med: 13.0 MV E/A: 1.0 MV V2 max: 119.4 cm/sec MV P1/2t max willis: 118.3 cm/sec Ao V2 max: 152.7 cm/sec MV max P.7 mmHg MV P1/2t: 82.8 msec Ao max P.3 mmHg MV V2 mean: 60.9 cm/sec Ao V2 mean: 106.6 cm/sec MV mean P.8 mmHg MV dec slope: 418.6 cm/sec2 Ao mean P.0 mmHg MV V2 VTI: 27.3 cm MVA(P1/2t): 2.7 cm2 Ao V2 VTI: 31.8 cm LV V1 max: 106.2 cm/sec PA V2 max: 122.4 cm/sec LV V1 max P.5 mmHg PA V2 mean: 78.2 cm/sec LV V1 mean P.7 mmHg LV V1 mean: 77.8 cm/sec LV V1 VTI: 24.2 cm ECHO/Echo Complete W/ Contrast Interpretation Summary The study was technically difficult. Contrast injection was performed. Mildly dilated left ventricle. Mild to moderate segmental systolic dysfunction (see wall motion). The estimated ejection fraction is 40 %. Septal motion consistent with IVCD. Mild (1+) mitral valve insufficiency. Mild focal aortic valve calcification. Stage 1 diastolic dysfunction. Ordering Physician: Temo Yeh Referring Physician: Campos Leon Performed By: James Landa RCS
--- NOTE | 2022-07-17 08:43 | STRESSREP ---
Stress Test Report Date: 07-17-2022 Procedure: Pharmacologic stress nuclear imaging study Indications: Abnormal ECG; preoperative cardiovascular evaluation Consent: Per the patient Procedure: The patient underwent pharmacologic (Regadenoson 0.4mg ) evaluation with a peak heart rate of 88 beats per minute (54%predicted maximal heart rate) and a resting blood pressure of 138/70 mmHg and a peak blood pressure of 138/70 mmHg. The baseline ECG demonstrated sinus rhythm; left bundle branch block. The peak pharmacologic ECG demonstrated continued sinus rhythm with left bundle branch block. There were no cardiac dysrhythmias pretest, during pharmacologic infusion, or recovery. There was no complaint of chest discomfort during pharmacologic infusion or recovery. The examination was discontinued secondary to completion of protocol. Impression: 1. Pharmacologic (Regadenoson) evaluation 2. Peak pharmacologic ECG with continued sinus rhythm with left bundle branch block. 3. There were no cardiac dysrhythmias pretest, during pharmacologic infusion, or recovery. 4. Nuclear images pending Myocardial perfusion imaging study: Technique: The patient was injected with 14.8 millicuries of technetium 99m Cardiolite and subsequently rest SPECT Cardiolite nuclear imaging was obtained in the horizontal long, vertical long, and short axis views. The patient underwent pharmacologic (Regadenoson) evaluation with a peak heart rate of 88 beats per minute (54% percent predicted maximal heart rate) and a resting blood pressure of 138/70 mmHg and a peak blood pressure of 138/70 mmHg. The patient was injected with 44.5 millicuries of technetium 99m Cardiolite and subsequently stress SPECT Cardiolite nuclear imaging was obtained in the horizontal long, vertical long, and short axis views. A gated Cardiolite study at peak stress was obtained. Interpretation: Rest and stress SPECT Cardiolite nuclear imaging status post realignment and normalization (attenuation correction not performed) demonstrate the appearance of diminished myocardial perfusion/tracer uptake in portions of the mid to distal anteroseptal/septal apical segments without significant change between rest and stress. There is diminished end-systolic thickening and brightening. The gated Cardiolite study demonstrates diminished myocardial thickening and inward wall motion. The reported LVEF is 51%. Impression: 1. Rest and stress SPECT her nuclear imaging demonstrate diminished myocardial perfusion/tracer uptake in portions of the mid to distal anteroseptal/septal apical segments potentially compatible with the underlying left bundle branch block phenomena, however, an area of previous myocardial injury/infarction cannot necessarily be excluded. There are no myocardial perfusion changes considered diagnostic for associated stress-induced myocardial ischemia. 2. The gated Cardiolite study reports an LVEF of 51%. This note was generated with [employer] software. It may contain incorrect words, spelling, and punctuation that were not noted in checking the note before signing.
== END | disposition home or self-care (01) ==
PROVIDERS: PCP Family Medicine; Referring Provider Internal Medicine Cardiovascular Disease; Visit Provider Internal Medicine Cardiovascular Disease
DX: Z01.810 Encounter for preprocedural cardiovascular examination (principal); R94.31 Abnormal electrocardiogram [ECG] [EKG]
CPT/HCPCS: 78452; 93017; 93306; A9500; Q9957; A4216; C8929; J2785

== ENCOUNTER 2022-07-30 07:00 | Day surgery (SDC) | payer OTHER, SELFPAY ==
[2022-07-29 09:15] VITALS: BMI 39.4
--- NOTE | 2022-07-30 10:22 | CL.D_ITS ---
Patient Name: DEMI FLAHERTY Study Date: 07/30/2022 Performing: Temo Yeh MD Ht: 61 inches 154.94 cm : 1965 Wt: 209 lbs 94.8 kg Age: 57 Gender: female BSA: 1.92 PROCEDURE(S) PERFORMED IC10-(49502)FFR, CORONARY OR GRAFT, INITIAL VESSEL DC02-(80829)LHC/COR CLINICAL PROFILE AND INDICATIONS Indications: Suspected CAD Heart Failure: None Stress/Imaging Stress Test w/SPECT MPI: Yes Result: Positive Intermediate RiskStress Test with SPECT MPI: Positive Intermediate Risk CONCLUSIONS 60% distal RCA; FFR 0.92, iFR 0.96 Mild LAD/LCX disease RECOMMENDATIONS Medical therapy DESCRIPTION OF PROCEDURE The patient arrived to the procedure lab. The risks and benefits of the procedure as well as a full description of our services here and current unavailability of surgical backup were fully explained to the patient and/or their significant other prior to the catheterization. The Timeout was completed, verifying the correct patient and procedure. The patient's procedural site was prepped and draped in the usual fashion. Local anesthetic was given subcutaneously to right radial region with Lidocaine 2%. Using a modified Seldinger technique, arterial access was obtained via the right radial artery, a 6Fr sheath was inserted. Right Coronary Artery selective angiography was then performed in multiple views using a 5 Fr. 4.0 [place] catheter. Left Coronary Artery selective angiography was performed in multiple views using a 5 Fr. 4.0 [place] catheter. LV to AO pullback pressures were then recorded. Right Coronary Artery selective angiography was then performed in multiple views using a 6 Fr. JR 4 Guide catheter.The arterial sheath was pulled and a TR Band was applied for hemostasis. 12cc air inserted. CORONARY ANGIOGRAPHY DOMINANCE: Right Dominant LEFT HEART ASSESSMENT LVEDP: 27 mmHg CIRCUMFLEX ARTERY: CIRCUMFLEX: Tubular 20% Proximal lesion in Circumflex RIGHT CORONARY ARTERY: RCA: Tubular 30% Mid lesion in RCA Tubular 60% Distal lesion in RCA Tubular 40% Proximal lesion in RCA COMPLICATIONS No Complications PROCEDURE MEDICATIONS Fentanyl 50 mcg IV Versed 2 mg IV Oxygen: 2 L/min via nasal cannula Adenosine drip for FFR 25.8 ml IV @ 07/30/2022 10:04:53 Heparin given IA 07/30/2022 09:30:44 Heparin 7000 unit(s) IV 07/30/2022 09:40:47 Zofran 4 mg IV 07/30/2022 09:09:49 SUMMARY OF HEMODYNAMIC DATA Time AIR REST ECG 07:23:10 AO 112/69 (89) SA 09:33:34 LV 137/20, 27 10:05:04 LV 138/22, 31 10:05:12 LVp 140/15, 26 10:05:20 AOp 140/79 (104) 10:05:27 AIR REST 10:18:47 Signed By Temo Yeh MD On 07/30/2022 10:21:26 Temo Yeh MD
== END 2022-07-30 12:30 | disposition home or self-care (01) ==
PROVIDERS: PCP Family Medicine; Referring Provider Internal Medicine Cardiovascular Disease; Visit Provider Internal Medicine Cardiovascular Disease
DX: R94.39 Abnormal result of other cardiovascular function study (principal); E11.65 Type 2 diabetes mellitus with hyperglycemia; Z79.4 Long term (current) use of insulin; G47.30 Sleep apnea, unspecified; Z82.49 Family history of ischemic heart disease and other diseases of the circulatory system; Z87.891 Personal history of nicotine dependence; I10 Essential (primary) hypertension; E78.5 Hyperlipidemia, unspecified; E66.9 Obesity, unspecified; R94.31 Abnormal electrocardiogram [ECG] [EKG]; Z86.16 Personal history of COVID-19
CPT/HCPCS: 93454; 93571; 99152; 99153; J0153; J7040; C1725; C1769; C1887; C1894; J2405; Q9967

== ENCOUNTER 2022-09-14 05:26 | Day surgery (SDC) | payer OTHER, SELFPAY ==
[2022-08-25 11:35] LABS: Absolute Lymphocyte Count 1.54 X10^3/uL (0.83-4.51); Absolute Neutrophil Count 5.6 X10^3/uL (2.0-7.7); Basophil# 0.05 X10^3/uL; Basophil% 0.6 % (0-1); Eosinophil# 0.44 X10^3/uL; Eosinophils% 5.3 % (0-5); Hemoglobin 15.1 g/dL (12.0-15.0); Lymphocyte # 1.54 X10^3/ul (0.83-4.51); Lymphocyte % 18.7 % (19-41); Mean Corp Hgb Conc 32.8 g/dL (32-36); Mean Corpuscular Hgb 29.5 pg (27.0-32.0); Mean Platelet Vol. 9.8 fl (6.2-12.0); Monocyte# 0.57 X10^3/uL; Monocyte% 6.9 % (0-10); NRBC Flagged by Analyzer 0 % (0-5); Neutrophil # 5.61 X10^3/uL (2.7-7.7); Platelet Count 216 K/mm3 (150-450); RBC Distribution Width CV 14.8 % (11.6-14.6); RBC Distribution Width SD 48.8 fl (35.1-43.9); Red Blood Count 5.11 M/mm3 (4.2-5.4); White Blood Count 8.3 K/mm3 (4.4-11.0)
[2022-08-25 12:06] LABS: Anion Gap 7 (5-15); BUN 16 mg/dL (7-18); BUN/Creat Ratio 18.5 RATIO (10-20); Calcium,Total 9.8 mg/dL (8.5-10.1); Chloride 99 mmol/L (98-107); Creatinine, Serum 0.87 mg/dL (0.55-1.02); EST Glomerular Filtration Rate 71 mL/min (>60); Est Glom Filt Rate - Afr Amer 86 mL/min (>60); Glucose 128 mg/dL (74-106); Potassium 4.5 mmol/L (3.5-5.1); Sodium Level 136 mmol/L (136-145)
[2022-08-25 12:13] LABS: Hemoglobin A1c 6.6 % (3.8-5.6)
[2022-08-25 16:14] LABS: Magnesium 2.6 mg/dL (1.6-2.6)
--- NOTE | 2022-09-01 15:47 | CASEMGMT ---
TC to pt for pre surgery RN CM assessment, pt states she will go home same day as surgery.
[2022-09-14] VITALS (10 sets, daily range): BP systolic 92–115; BP diastolic 45–67; PULSE 58–80; RESP 16–18; TEMP 36.3–36.6; O2SAT 94–100; BMI 37.9
--- NOTE | 2022-09-14 | KNEE_PTH ---
PATIENT: DEMI FLAHERTY [place] [facility] [id number] AGE/SX: 57/F ROOM: RE09/14/[address]: Dr. Dorian Landers DO : 1965 BED: DIS: 09/14/2022 SPEC #: [id number] RECD: 09/14/22 09:52 STATUS: SHAYAN REQ #: [id number] GUSTAVO: 09/14/22 00:[address]: Dorian Landers DEPT: SURGICAL PATHOLOGY RECD BY: Daniele Real ENTERED: 09/14/22 10:51 SP TYPE: TOTAL KNEE OTHR DR: DO Momo Holly PA-C Tissues: Knee, NOS Procedures: Decalcification bone/plaque Surgery Specimen Level IV HEADER OPERATION: ERAS, total knee replacement robotic arm assist PRE-OP DIAGNOSIS: Osteoarthritis left knee TISSUE SUBMITTED: Bone/tissue left knee MICROSCOPIC DIAGNOSIS Bone and tissue, left knee, total knee replacement/resection: Pieces of bone with degenerative osteoarthritic changes. SJ:galo 09/17/2022 MICROSCOPIC DESCRIPTION Slides are reviewed. GROSS DESCRIPTION Received is one container designated bone and soft tissue left knee. The specimen consists of multiple fragments of saez-yellow bone measuring in aggregate 14 x 10 x 1.5 cm. No soft tissue is identified. A number of bony fragments contain articular surfaces consistent with tibial plateau and femoral condyle and displaying prominent osteophyte formation, eburnation, and bone erosion. Ski Technician sections of bone are submitted in one cassette after decalcification. / AM:galo 09/14/2022 TC:5 CPT: 80747, 47655
[2022-09-14] MEDS: Lactated Ringers 1,000 ML 999 ML IV ×2 (06:33→09:20)
[2022-09-14] MEDS: Gabapentin 600 MG Tablet PO (06:33)
[2022-09-14] MEDS: Celecoxib 200 MG Capsule 400 MG PO (06:34)
[2022-09-14] MEDS: Acetaminophen 500 MG Tablet 1000 MG PO ×2 (06:34→14:13)
[2022-09-14] MEDS: Insulin Lispro 100 UNIT/ML INSULN.PEN SC ×3 (06:54→14:24)
[2022-09-14 07:01] LABS: Bedside Glucose 294 mg/dL (74-106)
[2022-09-14] MEDS: Lactated Ringers 1,000 ML 75 ML IV (07:21)
[2022-09-14] MEDS: Cefazolin 2 GM in 0.9% Normal Saline 100 ML IV (07:39)
[2022-09-14] MEDS: TXA 1000mg in NS100 100ml (IVPB at Incision) 660 MG IV (08:00)
[2022-09-14] MEDS: TXA 1000mg in NS100 100ml (IVPB at Closure) 660 MG IV (08:50)
--- NOTE | 2022-09-14 09:04 | RAD_ITS ---
STUDY: X-RAY - LEFT KNEE REASON FOR EXAM: Female, 57 years old. Post op TKR TECHNIQUE: 2 view(s) of the knee. COMPARISON: None. FINDINGS: Normal visualized distal femur. Normal visualized proximal tibia and fibula. Normal proximal tibiofibular articulation. The patient is status post total knee replacement. There is good alignment. Postoperative soft tissue changes RAD/Knee 1 or 2 Views IMPRESSION: Status post total knee replacement. There is good alignment. Postoperative soft tissue changes. Electronically Signed: Evans Wall MD at 11:05 EST ,
--- NOTE | 2022-09-14 09:06 | PCM.OPRPT ---
Report of Operation Date of Procedure: 09/14/22 Pre-Operative Diagnosis: OA left knee Post-Operative Diagnosis: same Surgery/Procedure Performed:: Left TKR Description of Surgical Findings:: Report of Operation Date of Procedure: 09/14/2022 Preoperative Diagnosis: [left ] knee primary osteoarthritis Postoperative Diagnosis: [left ] knee primary osteoarthritis Operation: Robotic Assisted Knee Total Arthroplasty, [left ] knee Surgeon: Dr Dorian Landers DO Licensed Psychologist: Momo Cornejo PA-C Anesthesia: spinal Anesthesiologist: Michelet Read M.D. Findings: Stable knee with good patella tracking Specimen(s): Bony cuts Complications: No intraoperative complications Estimated Blood Loss: 30 cc IV Fluids: 1000 cc crystalloid Implants Used: 1. [place] [employer] press fit CR size 1 femur 2. [place] [employer] size 1 tibia 3. 29 mm patella 4. 9 mm CS polyethylene Brief History Operative Indications: [ (57 y/o female) ] with history of [left ] knee osteoarthrosis with radiographic findings with loss of joint space, osteophyte formation and subchondral sclerosis. Failed conservative measures as mentioned in the H&P. Discussion of total knee arthroplasty as well as risk and benefits were discussed with the patient including but not limited to blood loss, DVTs, PEs, neurovascular damage, general risk of anesthesia including loss of life, and stiffness or instability were also discussed with the patient. Patient demonstrated understanding and was able to sign informed consent. Procedure: On the date of procedure, patient's [left ] lower extremity was marked in the preoperative area. The patient was then taken back to the operating room where that patient was placed on the table in the supine position. All bony prominences were identified and well-padded. Anesthesia assumed control of the C-spine and airway throughout the remainder of the procedure. A tourniquet was placed on the [left ] upper thigh and the leg was prepped in a sterile fashion. The surgeon then scrubbed at this time. Upon reentering the room, the [ left ] lower extremity was draped in a standard orthopedic fashion. A timeout was then called and everyone agreed upon the side, the site, the procedure to be performed, patient's identity and antibiotics given. Esmarch bandage was used to exsanguinate the extremity and the tourniquet was placed up to 250 mmHg with the knee in flexion. A midline skin incision was made and a sharp dissection was taken down through skin, subcutaneous tissue and fat. The standard medial parapatellar incision was made and the patella was subluxed laterally. An appropriate deep MCL release was done and the fat pad was resected. Our attention was then directed to the patella. The patella was everted and a flat resection was made. The knee was then flexed up and 2 femoral pins were placed inside the incision and 2 tibial pins were placed outside the incision in the medial tibia bicortically. Once this was completed, the 2 checkpoints in the femur and tibia were placed. Knee was then flexed up and the bony landmarks were registered. Once the was completed, the knee taken through range of motion and manually stressed allowing us to plan for an appropriate tibial cut. The robotic arm was brought into the field sterilely and checkpoint and saw were registered. Based on the patient's deformity, the tibial cut was made in [2 degrees varus ]. At this time, the tensioner was then placed in the joint and ligament tension was checked at 90 degrees and full extension. Based on the patient's ligamentous tension, appropriate adjustments were made to the operative plan and ligament releases were done. Once we were happy with our operative plan with balanced flexion and extension gaps, our attention was directed to the femur. The robot was brought into the field sterilely and registered. Posterior condylar cuts, anterior chamfer cuts and anterior cuts were appropriately made for a [size 1 ] femur. When these were completed, the saws were switched out in the distal femoral and posterior chamfer cuts were made. Protecting the soft tissue throughout this time. A [ size 1 ] base plate was selected. The knee was flexed to 90 degrees and soft tissues and posterior osteophytes were removed from the joint. 40 cc of the periarticular injection was injected into the posterior medial corner of the joint. The appropriate trials were then placed on the femur and tibia. A trial polyethylene was trialed to ensure proper balancing and stability of the knee. The appropriate tibial internal rotation was then marked with a bovie. Our attention was then directed to the patella. The lug holes were drilled and the patella trial was placed. Patellar tracking was checked and deemed appropriate. Once we were happy, lug holes were drilled for the femur and trial components were removed. The tibia was subluxed and pinned into place and the keel was punched and drilled appropriately. Final components were verified and opened. The wound was copiously irrigated with normal saline. The components were impacted into place with the tibia, femur and finally the patella. The trial poly component was placed and the knee was placed in full extension. The tracking, alignment and balance were verified and a [9 mm CS ] polyethylene component was placed. Once the final components were placed an Irrisept lavage was performed and the wound was copiously irrigated with normal saline solution and the periarticular injection was given. the wound was closed in a layer-holloway fashion using #1 vicryl interrupted sutures for the arthrotomy, 2-0 interrupted vicryl suture for the subcuticular layer and juan for final skin closure. A sterile compressive dressing was then placed. The patient was then awakened from anesthesia, transferred to the rsayre and transferred to the PACU for recovery. My physician outpatient physical therapist assistant was a vital part of this case. He was important in appropriate retraction during the case, and protection of soft tissues during bony cuts. His intimate knowledge of the case and my steps aided in safe and expedient completion of the procedure as well as appropriate position of the leg during the case. He was also vital in assisting with closure under my direct supervision. Due to the complexity of this case, robotic arm was used to assist in the surgery to improve accuracy and clinical outcomes. Post-op Plan: DVT ppx; ASA 81 mg BID, thigh high compression stockings Follow up: in office in 2 weeks for wound check PT: to start POD #0 at hospital, outpatient PT should be arranged. Preoperative antibiotic: Ancef 2 grams IV Dorian Landers DO Surgeon: Dorian Landers residential supervisor: Momo Cornejo Type of Anesthesia: Spinal Anesthesiologist: Michelet Read Estimated Blood Loss (mL): 30 cc Fluids Replaced: 1000 cc crystalloid Admit VTE Documentation VTE Present on Admission: No VTE Mechan Device Prophylaxis: SCD's and Thigh High JUANITA Hose VTE Pharm Prophylaxis ordered?: Yes
[2022-09-14 10:16] LABS: Bedside Glucose 218 mg/dL (74-106)
[2022-09-14] MEDS: Lactated Ringers 1,000 ML 125 ML IV (11:23)
[2022-09-14 14:41] LABS: Bedside Glucose 311 mg/dL (74-106)
[2022-09-14] MEDS: oxyCODONE 5 MG Tablet PO (15:22)
== END 2022-09-14 16:08 | disposition home or self-care (01) ==
LOC: SDC 05:27 → AC 05:38
PROVIDERS: Anesthesiology; PCP Family Medicine; Referring Provider Orthopaedic Surgery; Visit Provider Orthopaedic Surgery
PROC: 0SRD0JZ Replacement of Left Knee Joint with Synthetic Substitute, Open Approach (ICD-10-PCS; CPT 27447; principal; 2022-09-14 07:00)
DX: M17.12 Unilateral primary osteoarthritis, left knee (principal); M06.9 Rheumatoid arthritis, unspecified; E11.9 Type 2 diabetes mellitus without complications; Z79.4 Long term (current) use of insulin; K21.9 Gastro-esophageal reflux disease without esophagitis; I10 Essential (primary) hypertension; E78.00 Pure hypercholesterolemia, unspecified; J45.909 Unspecified asthma, uncomplicated; G47.30 Sleep apnea, unspecified; Z87.891 Personal history of nicotine dependence; Z86.16 Personal history of COVID-19
CPT/HCPCS: 27447; 36415; 73560; 80048; 82962; 83036; 83735; 85025; 87081; 88305; 88311; 97162; C1776; J7120; J2405

== ENCOUNTER → 2022-10-31 | Outpatient (CLI) | payer OTHER, SELFPAY ==
[2022-10-31 12:59] LABS: ALB/GLOB Ratio 0.9 RATIO (0.9-2.4); AST(SGOT) 17 U/L (15-37); Alanine Aminotransfer ALT/SGPT 21 U/L (13-56); Albumin, Serum 3.8 g/dL (3.2-5.0); Alkaline Phosphatase 134 U/L (45-117); Anion Gap 8 (5-15); BUN 18 mg/dL (7-18); BUN/Creat Ratio 20.8 RATIO (10-20); Calcium,Total 9.7 mg/dL (8.5-10.1); Chloride 105 mmol/L (98-107); Cholesterol 124 mg/dL (200); Creatinine, Serum 0.87 mg/dL (0.55-1.02); EST Glomerular Filtration Rate 71 mL/min (>60); Est Glom Filt Rate - Afr Amer 86 mL/min (>60); Globulin 4.3 g/dL (2.2-4.2); Glucose 196 mg/dL (74-106); High Density Lipoprotein 42 mg/dL; Potassium 4.1 mmol/L (3.5-5.1); Protein, Total 8.1 g/dL (6.4-8.2); Sodium Level 139 mmol/L (136-145); Triglycerides 205 mg/dL; Very Low Density Lipoprotein 41 mg/dL (5-40)
== END | disposition home or self-care (01) ==
LOC: LAB 11:43
PROVIDERS: PCP Family Medicine
DX: Z79.4 Long term (current) use of insulin (principal)
CPT/HCPCS: 36415; 80053; 80061; 83036

== ENCOUNTER → 2022-11-17 | Outpatient (CLI) | payer OTHER, SELFPAY ==
--- NOTE | 2022-11-17 07:56 | CT_ITS ---
PROCEDURE: CT RIGHT KNEE WITHOUT CONTRAST REASON FOR EXAM: Female, 57 years old. Preoperative planning for the [employer] Robotic knee surgery. Knee pain. TECHNIQUE: Transaxial CT of the hip, knee and ankle were obtained. Coronal and sagittal reconstruction images of the knee were provided. Individualized dose optimization techniques were used for this CT. COMPARISON: None. FINDINGS: Standard protocol for the preoperative planning for the [employer] robotic knee surgery was performed. Osteopenia with mild arthrosis of the hip and moderate tricompartmental arthrosis of the knee with osteophytes. Mild arthrosis of the tibiotalar joint. Moderate to marked arthrosis of the subtalar joint. Superior and inferior calcaneal spurs.. CT/Extremity Lower without Contra IMPRESSION: Preoperative [employer] Robotic knee surgical CT evaluation with findings as described above. Electronically Signed: Momo Archibald, at 9:46 EST ,
--- NOTE | 2022-11-17 13:05 | EKG12_ITS ---
Test Reason : PRE OP Blood Pressure : / mmHG Vent. Rate : 073 BPM Atrial Rate : 073 BPM P-R Int : 150 ms QRS Dur : 128 ms QT Int : 410 ms P-R-T Axes : 045 -63 108 degrees QTc Int : 451 ms Normal sinus rhythm Left axis deviation Left bundle branch block Abnormal ECG Confirmed by ALMA ELIZONDO, MARILU ([id number]), script editor MAYNOR SHER ([id number]) on 11/18/2022 8:58:22 AM Referred By: Dorian Landers Confirmed By:MARILU MARQUEZ MD
[2022-11-17 13:34] LABS: Hematocrit 45.9 % (37-47); Hemoglobin 14.4 g/dL (12.0-15.0); Mean Corp Hgb Conc 31.4 g/dL (32-36); Mean Corpuscular Hgb 27.9 pg (27.0-32.0); Mean Platelet Vol. 9.1 fl (6.2-12.0); Platelet Count 285 K/mm3 (150-450); RBC Distribution Width CV 14.6 % (11.6-14.6); RBC Distribution Width SD 47.6 fl (35.1-43.9); Red Blood Count 5.16 M/mm3 (4.2-5.4); White Blood Count 9.5 K/mm3 (4.4-11.0)
== END | disposition home or self-care (01) ==
PROVIDERS: Physician Assistant; PCP Family Medicine; Referring Provider Orthopaedic Surgery; Visit Provider Orthopaedic Surgery
DX: Z01.818 Encounter for other preprocedural examination (principal); M17.11 Unilateral primary osteoarthritis, right knee
CPT/HCPCS: 36415; 73700; 85027; 93005

== ENCOUNTER → 2022-12-03 | Outpatient (CLI) | payer OTHER, SELFPAY ==
--- NOTE | 2022-12-02 | KNEE_PTH ---
PATIENT: DEMI FLAHERTY LOC: [facility] U#:[id number] AGE/SX: 57/F ROOM: RE12/03/[address]: Dr. Dorian Landers DO : 1965 BED: DIS: 12/03/2022 SPEC #: [id number] RECD: 12/03/22 15:19 STATUS: SHAYAN REQ #: [id number] GUSTAVO: 12/02/22 00:[address]: Dorian Landers DEPT: SURGICAL PATHOLOGY RECD BY: Kenyatta Hallman ENTERED: 12/04/22 15:14 SP TYPE: TOTAL KNEE OTHR DR: Dr. Campos Leon, [facility] Tissues: Knee, NOS Procedures: Decalcification bone/plaque Surgery Specimen Level IV HEADER OPERATION: Right total knee arthroplasty with robotic assistance PRE-OP DIAGNOSIS: Osteoarthritis right knee TISSUE SUBMITTED: Right knee bone and tissue MICROSCOPIC DIAGNOSIS Bone and tissue, right knee, total knee replacement/resection: Pieces of bone with degenerative osteoarthritic changes. Fibroadipose tissue, fibroconnective tissue and reactive synovial tissue. GRACE:galo 12/09/2022 MICROSCOPIC DESCRIPTION Slides are reviewed. GROSS DESCRIPTION Received is one container designated right knee bone and tissue. The specimen consists of multiple fragments of saez-yellow bone measuring in aggregate 12.0 x 7.0 x 3.0 cm. Also in the specimen container are multiple fragments of yellow-white soft tissue measuring in aggregate 8.0 x 8.0 x 3.0 cm. A number of bony fragments contain articular surfaces consistent with tibial plateau and femoral condyle and displaying prominent osteophyte formation, eburnation and bone erosion. Two pieces of bone consistent with loose body are also noted measuring 1.5 and 2.5 cm in greatest dimension. Motor Setter sections are submitted in two cassettes as follows: 1 - soft tissue, 2 - bone after decalcification. / GRACE:galo 12/04/2022 TC:5 CPT: 53955, 14879
== END | disposition home or self-care (01) ==
LOC: LABSPEC 15:46
PROVIDERS: PCP Family Medicine; Referring Provider Orthopaedic Surgery; Visit Provider Orthopaedic Surgery
DX: M17.11 Unilateral primary osteoarthritis, right knee (principal)
CPT/HCPCS: 88305; 88311

== ENCOUNTER → 2023-06-19 | Outpatient (CLI) | payer OTHER, SELFPAY ==
[2023-06-19 09:27] LABS: AST(SGOT) 15 U/L (15-37); Alanine Aminotransfer ALT/SGPT 22 U/L (13-56); Alkaline Phosphatase 131 U/L (45-117); Anion Gap 3 (5-15); BUN 17 mg/dL (7-18); BUN/Creat Ratio 20.6 RATIO (10-20); CPK Total, Creatine Kinase 58 U/L (26-192); Calcium,Total 9.8 mg/dL (8.5-10.1); Chloride 103 mmol/L (98-107); Cholesterol 168 mg/dL (200); Creatinine, Serum 0.83 mg/dL (0.55-1.02); EST Glomerular Filtration Rate 75 mL/min (>60); Est Glom Filt Rate - Afr Amer 91 mL/min (>60); Glucose 175 mg/dL (74-106); High Density Lipoprotein 49 mg/dL; Potassium 5.1 mmol/L (3.5-5.1); Sodium Level 135 mmol/L (136-145); Triglycerides 174 mg/dL; Very Low Density Lipoprotein 35 mg/dL (5-40)
== END | disposition home or self-care (01) ==
LOC: LAB 08:28
PROVIDERS: PCP Family Medicine; Referring Provider Internal Medicine Cardiovascular Disease; Visit Provider Internal Medicine Cardiovascular Disease
DX: I42.8 Other cardiomyopathies (principal); E11.9 Type 2 diabetes mellitus without complications; I25.10 Atherosclerotic heart disease of native coronary artery without angina pectoris; E78.5 Hyperlipidemia, unspecified; I10 Essential (primary) hypertension
CPT/HCPCS: 36415; 80053; 80061; 82550

== ENCOUNTER → 2023-06-25 | Outpatient (CLI) | payer OTHER, SELFPAY ==
--- NOTE | 2023-06-25 13:07 | ECHOCS_ITS ---
Reason For Study: Cardiomyopathy Procedure This was a 2D Doppler, Color Flow transthoracic echocardiogram. The study was technically difficult. Contrast injection was performed. Exam performed in department. Left Ventricle Normal size and thickness. The left ventricular ejection fraction is 35 %. Stage 1 diastolic dysfunction. Severe septal hypokinesis to akinesis. Apical hypokinesis. Right Ventricle Normal right ventricle. Atria The left and right atria are normal. Mitral Valve Mild focal mitral valve calcification. Trivial mitral valve insufficiency. Tricuspid Valve Normal tricuspid valve. Aortic Valve Trisinus/trileaflet aortic valve. Pulmonic Valve The pulmonic valve is not well visualized. Great Vessels Calcified aortic root. Pericardium/Pleural No pericardial effusion. Medication 22 gauge I.V. with prn adaptor inserted into right arm. Diluted definity 1.5ml given slow IV push to enhance endocardial definition. MMode/2D Measurements & Calculations LVIDd: 5.1 cm IVSd: 0.87 cm Ao root diam: 3.0 cm LVIDs: 3.8 cm LVPWd: 0.75 cm LA dimension: 3.2 cm FS: 25.1 % LAV(MOD-bp): 21.2 ml LVAd ap4: 36.3 cm2 SV(MOD-sp4): 38.9 ml LAV(MOD-bp) Indexed: 12.1 ml/m2 LVLd ap4: 8.5 cm LAV(MOD-sp2): 26.5 ml EDV(MOD-sp4): 125.3 ml LAV(MOD-sp4): 17.2 ml EDV(sp4-el): 132.0 ml LVAs ap4: 29.1 cm2 LVLs ap4: 8.1 cm ESV(MOD-sp4): 86.4 ml ESV(sp4-el): 88.9 ml EF(MOD-sp4): 31.1 % EF(sp4-el): 32.7 % SV(sp4-el): 43.1 ml LA A4 area: 9.2 cm2 RA A4 area: 9.0 cm2 TAPSE: 1.8 cm Time Measurements MV dec time: 0.37 sec Doppler Measurements & Calculations MV E max willis: 55.1 cm/sec Lat Peak E' Willis: 6.1 cm/sec Med Peak E' Willis: 5.5 cm/sec MV A max willis: 70.7 cm/sec E/E' lat: 9.0 E/E' med: 10.0 MV E/A: 0.78 MV V2 max: 83.1 cm/sec MV P1/2t max willis: 66.8 cm/sec Ao V2 max: 154.3 cm/sec MV max P.8 mmHg MV P1/2t: 104.7 msec Ao max P.5 mmHg MV V2 mean: 44.4 cm/sec Ao V2 mean: 101.6 cm/sec MV mean P.93 mmHg MV dec slope: 187.0 cm/sec2 Ao mean P.8 mmHg MV V2 VTI: 22.2 cm MVA(P1/2t): 2.1 cm2 Ao V2 VTI: 31.0 cm AV (velocity ratio): 0.71 LV V1 max: 107.5 cm/sec PA V2 max: 100.1 cm/sec LV V1 max P.6 mmHg PA V2 mean: 67.7 cm/sec LV V1 mean P.3 mmHg LV V1 mean: 69.6 cm/sec LV V1 VTI: 21.9 cm ECHO/Echo Complete W/ Contrast Interpretation Summary The left ventricular ejection fraction is 30-35 %. Stage 1 diastolic dysfunction. Mild focal mitral valve calcification. Calcified aortic root. Ordering Physician: Temo Yeh Referring Physician: Campos Leon Performed By: James Landa RCS
== END | disposition home or self-care (01) ==
LOC: CVS 13:06
PROVIDERS: PCP Family Medicine; Referring Provider Internal Medicine Cardiovascular Disease; Visit Provider Internal Medicine Cardiovascular Disease
DX: I42.8 Other cardiomyopathies (principal); I25.10 Atherosclerotic heart disease of native coronary artery without angina pectoris; R94.31 Abnormal electrocardiogram [ECG] [EKG]; E78.5 Hyperlipidemia, unspecified
CPT/HCPCS: 93306; Q9957; A4216; C8929

== ENCOUNTER → 2023-07-24 | Outpatient (CLI) | payer OTHER, SELFPAY ==
[2023-07-24 09:22] LABS: Anion Gap 4 (5-15); BUN 14 mg/dL (7-18); BUN/Creat Ratio 16.5 RATIO (10-20); Calcium,Total 9.3 mg/dL (8.5-10.1); Chloride 104 mmol/L (98-107); Creatinine, Serum 0.85 mg/dL (0.55-1.02); EST Glomerular Filtration Rate 73 mL/min (>60); Est Glom Filt Rate - Afr Amer 88 mL/min (>60); Glucose 173 mg/dL (74-106); Potassium 4.2 mmol/L (3.5-5.1); Sodium Level 138 mmol/L (136-145)
== END | disposition home or self-care (01) ==
LOC: LAB 08:44
PROVIDERS: PCP Family Medicine; Referring Provider Physician Assistant Medical; Visit Provider Physician Assistant Medical
DX: I42.8 Other cardiomyopathies (principal)
CPT/HCPCS: 36415; 80048

== ENCOUNTER → 2024-01-01 | Outpatient (CLI) | payer OTHER, SELFPAY ==
[2024-01-01 09:59] LABS: AST(SGOT) 15 U/L (15-37); Alanine Aminotransfer ALT/SGPT 22 U/L (13-56); Alkaline Phosphatase 118 U/L (45-117); Anion Gap 5 (5-15); BUN 15 mg/dL (7-18); BUN/Creat Ratio 20.1 RATIO (10-20); Chloride 105 mmol/L (98-107); Cholesterol 174 mg/dL (200); Creatinine, Serum 0.75 mg/dL (0.55-1.02); EST Glomerular Filtration Rate 84 mL/min (>60); Est Glom Filt Rate - Afr Amer 102 mL/min (>60); Globulin 3.9 g/dL (2.2-4.2); Glucose 150 mg/dL (74-106); High Density Lipoprotein 51 mg/dL; Potassium 5.3 mmol/L (3.5-5.1); Protein, Total 7.9 g/dL (6.4-8.2); Sodium Level 138 mmol/L (136-145); Triglycerides 168 mg/dL; Very Low Density Lipoprotein 34 mg/dL (5-40)
== END | disposition home or self-care (01) ==
LOC: LAB 08:36
PROVIDERS: PCP Family Medicine; Referring Provider Internal Medicine Cardiovascular Disease; Visit Provider Internal Medicine Cardiovascular Disease
DX: I25.10 Atherosclerotic heart disease of native coronary artery without angina pectoris (principal); E78.5 Hyperlipidemia, unspecified
CPT/HCPCS: 36415; 80053; 80061

== ENCOUNTER → 2024-01-20 | Outpatient (CLI) | payer OTHER, SELFPAY ==
--- NOTE | 2024-01-20 08:51 | BI_ITS ---
MAMMOGRAPHY - BILATERAL DIAGNOSTIC REASON FOR EXAM: Female, 58 years old. 2 week history of palpable lump in the upper lateral aspect of the left breast. PERTINENT HISTORY: Non-contributory. Prior right excisional breast biopsy. TECHNIQUE: Digital bilateral breast alvin (3D mammographic acquisition) in the CC and MLO projections. 2-D mediolateral oblique (MLO) and craniocaudad (CC) views of both breasts were obtained. CAD: Full Field Digital Mammography with Computer Added Detection was performed. COMPARISON: Comparison is made with prior study December 19, 2021 and December 12, 2021. FINDINGS: Breast Composition: The breasts are heterogeneously dense, which may obscure small masses. There are no dominant masses or suspicious calcifications. The previously seen 5 mm nodule in the retroareolar region of the right breast has been resected. Stable benign-appearing bilateral axillary lymph nodes. No other significant abnormalities are identified. BI/DIAG MAMM W/CAD, BILAT IMPRESSION: Negative diagnostic mammogram. With the patient''s history of a palpable lump in the upper outer quadrant of the left breast, correlation with ultrasound is recommended. ASSESSMENT CATEGORY: BIRADS Category 0: Incomplete. Need additional imaging evaluation. A letter regarding these results will be sent to the patient by the facility within 30 days. Approximately 10% of breast cancers are not detected by mammography. A normal mammogram should not delay biopsy of a clinically suspicious abnormality. Electronically Signed: Evans Wall MD at 10:44 EDT ,
--- NOTE | 2024-01-20 09:28 | US_ITS ---
STUDY: ULTRASOUND BREAST - LEFT REASON FOR EXAM: Female, 58 years old. Swelling in the left axillary region. TECHNIQUE: Axial and longitudinal images of the LEFT breast were performed with a high resolution ultrasound transducer. # OF IMAGES: 10 COMPARISON: Comparison is made with prior mammogram done earlier in the day as well as prior sonogram of the right breast dated December 19, 2021. FINDINGS: LEFT Breast: The right axillary region was examined with ultrasound. Incidental note is made of a 1.4 cm x 0.9 cm x 0.5 cm benign-appearing lymph node. US/Breast Limited Unilateral IMPRESSION: 1.4 cm x 0.9 cm x 0.5 cm benign-appearing lymph node. ASSESSMENT CATEGORY: BIRADS Category 2: Benign. A letter regarding these results will be sent to the patient by the facility within 30 days. Electronically Signed: Evans Wall MD at 8:52 EDT ,
--- NOTE | 2024-01-20 14:39 | ECHOLC_ITS ---
Reason For Study: HYPERTENSION Procedure This was a limited 2D transthoracic echocardiogram. Exam performed in department. Left Ventricle Normal size and thickness. The left ventricular ejection fraction is 35 %. Right Ventricle Normal right ventricle. Atria The left and right atria are normal. Mitral Valve The mitral valve is structurally normal. No prolapse or stenosis seen. Tricuspid Valve Normal tricuspid valve. Aortic Valve Trisinus/trileaflet aortic valve. Pulmonic Valve The pulmonic valve is not well visualized. Great Vessels Normal sized aortic root. Pericardium/Pleural No pericardial effusion. Medication 22 gauge I.V. with prn adaptor inserted into right arm. Diluted definity 2.5ml given slow IV push to enhance endocardial definition. MMode/2D Measurements & Calculations LVIDd: 4.8 cm IVSd: 0.95 cm Ao root diam: 3.4 cm LVIDs: 3.7 cm LVPWd: 0.88 cm RVDd: 2.4 cm FS: 24.5 % LAV(MOD-bp): 45.7 ml LVAd ap4: 29.1 cm2 LVAd ap2: 23.4 cm2 LAV(MOD-bp) Indexed: 25.8 ml/m2 LVLd ap4: 8.7 cm LVLd ap2: 8.0 cm LAV(MOD-sp2): 44.5 ml EDV(MOD-sp4): 80.9 ml EDV(MOD-sp2): 55.9 ml LAV(MOD-sp4): 44.8 ml EDV(sp4-el): 82.9 ml EDV(sp2-el): 58.0 ml LVAs ap4: 18.4 cm2 LVAs ap2: 16.3 cm2 LVLs ap4: 6.4 cm LVLs ap2: 7.4 cm ESV(MOD-sp4): 44.4 ml ESV(MOD-sp2): 30.4 ml ESV(sp4-el): 44.7 ml ESV(sp2-el): 30.5 ml EF(MOD-sp4): 45.2 % EF(MOD-sp2): 45.6 % EF(sp4-el): 46.1 % SV(MOD-sp4): 36.5 ml SV(MOD-sp2): 25.5 ml SV(sp4-el): 38.2 ml LA A4 area: 15.3 cm2 RA A4 area: 12.4 cm2 ECHO/Echo Limited w/Contrast Interpretation Summary The left ventricular ejection fraction is 35 %. Severe septal hypokinesis to ak inesis. Generalized hypokinesis. No Doppler study done. Ordering Physician: Temo Yeh Referring Physician: Campos Leon Performed By: Melisa Argueta, LUIS FERNANDO, RVT
== END | disposition home or self-care (01) ==
PROVIDERS: PCP Family Medicine; Referring Provider Internal Medicine Cardiovascular Disease; Visit Provider Internal Medicine Cardiovascular Disease
DX: N63.21 Unspecified lump in the left breast, upper outer quadrant (principal); I42.8 Other cardiomyopathies; I25.10 Atherosclerotic heart disease of native coronary artery without angina pectoris; I10 Essential (primary) hypertension
CPT/HCPCS: 76642; 77062; 77066; 93308; Q9957; A4216; C8924; G0279

== ENCOUNTER → 2024-01-22 | Outpatient (CLI) | payer OTHER, SELFPAY ==
[2024-01-22 08:03] LABS: Absolute Lymphocyte Count 1.83 X10^3/uL (0.83-4.51); Absolute Neutrophil Count 3.1 X10^3/uL (2.0-7.7); Basophil# 0.07 X10^3/uL; Basophil% 1.2 % (0-1); Eosinophil# 0.49 X10^3/uL; Eosinophils% 8.3 % (0-5); Hematocrit 48.5 % (37-47); Hemoglobin 15.6 g/dL (12.0-15.0); Lymphocyte # 1.83 X10^3/ul (0.83-4.51); Lymphocyte % 31.1 % (19-41); Mean Corp Hgb Conc 32.2 g/dL (32-36); Mean Corpuscular Hgb 28.7 pg (27.0-32.0); Mean Corpuscular Volume 89.2 fL (81-99); Mean Platelet Vol. 9.3 fl (6.2-12.0); Monocyte# 0.38 X10^3/uL; Monocyte% 6.5 % (0-10); NRBC Flagged by Analyzer 0 % (0-5); Neutrophil % 52.6 % (47-70); Platelet Count 168 K/mm3 (150-450); RBC Distribution Width SD 45.2 fl (35.1-43.9); Red Blood Count 5.44 M/mm3 (4.2-5.4); White Blood Count 5.9 K/mm3 (4.4-11.0)
[2024-01-22 08:41] LABS: AST(SGOT) 18 U/L (15-37); Alanine Aminotransfer ALT/SGPT 22 U/L (13-56); Albumin, Serum 3.9 g/dL (3.2-5.0); Alkaline Phosphatase 127 U/L (45-117); Anion Gap 4 (5-15); BUN 13 mg/dL (7-18); Chloride 106 mmol/L (98-107); Cholesterol 202 mg/dL (200); Creatinine, Serum 0.72 mg/dL (0.55-1.02); EST Glomerular Filtration Rate 88 mL/min (>60); Est Glom Filt Rate - Afr Amer 106 mL/min (>60); Glucose 161 mg/dL (74-106); High Density Lipoprotein 45 mg/dL; Protein, Total 7.9 g/dL (6.4-8.2); Sodium Level 138 mmol/L (136-145); Triglycerides 292 mg/dL; Very Low Density Lipoprotein 58 mg/dL (5-40)
== END | disposition home or self-care (01) ==
LOC: LAB 07:45
PROVIDERS: PCP Family Medicine; Referring Provider Family Medicine; Visit Provider Family Medicine
DX: E78.2 Mixed hyperlipidemia (principal)
CPT/HCPCS: 36415; 80053; 80061; 85025

== ENCOUNTER 2024-03-20 06:17 | Day surgery (SDC) | payer OTHER, SELFPAY ==
[2024-03-20] VITALS (7 sets, daily range): BP systolic 99–152; BP diastolic 57–81; PULSE 59–68; RESP 16; TEMP 36.1–36.5; O2SAT 98–99; BMI 31.6
[2024-03-20] MEDS: Lactated Ringers 1,000 ML 15 ML IV (06:39)
--- NOTE | 2024-03-20 06:50 | PCM.PRE.AN2 ---
ASA Classification* ASA Classification ASA Classification: 3 Assessment & Plan Anesthesia* Anesthesia Assessment Anesthesia Assessment: Discussed sedation and/or anesthesia options, risks, benefits, and alternatives with patient/parents/legal guardian/POA. Questions invited. The patient/parents/legal guardian/POA seems to understand and agrees to proceed with anesthesia plan. Reviewed the physical assessment, medical history, allergy history and patient home medications list prior to surgery/procedure/anesthetic and documented any changes. Performed airway and anesthesia risk assessments. Anesthesia Type Anesthesia Type: MAC Pre-Assessment Diagnosis/Proposed Procedure Planned Operative Procedure(s): COLONOSCOPY Anesthesia History Anesthesia History - surgical first assistant: Anesthesia History - surgical first assistant Hx Hospitalization No 03/14/24 12:23 Any Problems With Anesthesia No 03/14/24 12:23 Cholinesterase deficiency No 03/14/24 12:23 You/Your Family Experience No 03/14/24 12:23 fever (hyperthermia) with Relationship Recent Exposure to Contagious No 03/20/24 06:37 Disease Does patient have nerve No 03/14/24 12:23 stimulator Patient instructed to have device shut off --Does patient have Pacemaker No 03/20/24 06:37 or ICD? When Was Last Pacemaker Check QUESTION #4 FULL TEXT: You/Your Family Experience fever (hyperthermia) with Anesthesia Last Oral Intake Last Oral intake: Last Oral Intake NPO since Meds taken in AM with sips of water? Meds patient instructed to take am of surgery PONV PONV - surgical first assistant: PONV - surgical first assistant Female Yes 03/14/24 12:23 HX of Motion Sickness No 03/14/24 12:23 HX of N/V After Surgery No 03/14/24 12:23 Non-Smoker Yes 03/14/24 12:23 Duration of Surgery greater No 03/14/24 12:23 than 60 minutes Number of Risk Factors 2 03/14/24 12:23 PONV Score Moderate Risk 03/14/24 12:23 Height & Weight Height & Weight: Anesthesia: Height & Weight Height 5 ft 2 in 03/20/24 06:37 Weight: 78.6 kg 03/20/24 06:37 Body Mass Index (BMI) 31.6 03/20/24 06:37 Respiratory Assessment Respiratory Assessment - surgical first assistant: Respiratory Tract Infection Hx - surgical first assistant Hx Respiratory Tract Infection No 03/14/24 12:23 STOP Sleep Apnea STOP Sleep Apnea - surgical first assistant: STOP Sleep Apnea - surgical first assistant Hx Hypertension Yes: CONTROLLED ON MED 03/14/24 12:23 Hx Sleep Apnea Yes: NON-COMPLIANT 03/14/24 12:23 CPAP Yes 03/14/24 12:23 BIPAP No 03/14/24 12:23 Do you snore loudly (louder than talking or can be heard Do you often feel tired/ fatigued/ sleepy during daytime? Has anyone observed you stop breathing during sleep? STOP Results Positive 03/14/24 12:23 QUESTION #5 FULL TEXT : Do you snore loudly (louder than talking or can be heard through closed doors)? 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 Specify any problems Hx of Preganancy in last 3 No 03/14/24 12:23 Months Nurse Filling Out Transfusion VCHRISTIN 03/14/24 12:23 & Questions: Date: 03/14/24 03/14/24 12:23 Time: 12:25 03/14/24 12:23 Patient unable to answer at this time (ie. confused, unrespo /Reproduction History /Reproductive History - surgical first assistant: /Reproductive Hx- surgical first assistant Hx Now Gestational Age (in weeks): EDC: Hx Hx Para Hx Section SAB No 03/14/24 12:23 Active Medications Active Medications: Current Medications Generic Name Dose Route Start Last Admin Trade Name Freq PRN Reason Stop Dose Admin Lactated Ringer's 1,000 mls @ 15 mls/hr 03/20/24 06:30 03/20/24 06:39 IV 15 mls/hr .Q48H EBER Administration Anesthesia Focused Assessment* Temperature: 97.7 F Pulse Rate: 68 Blood Pressure: 152/81 Respiratory Rate: 16 Pulse Ox: 99 Airway Assessment Mouth opens: >3 cm Mallampati Score: II Focused Labs Anesthesia Preop lab: CBC WBC 5.9 K/mm3 (4.4-11.0) 01/22/24 07:47 RBC 5.44 M/mm3 (4.2-5.4) H 01/22/24 07:47 Hgb 15.6 g/dL (12.0-15.0) H 01/22/24 07:47 Hct 48.5 % (37-47) H 01/22/24 07:47 Plt Count 168 K/mm3 (150-450) 01/22/24 07:47 CHEMISTRY Potassium 4.0 mmol/L (3.5-5.1) 01/22/24 07:47 Sodium 138 mmol/L (136-145) 01/22/24 07:47 Magnesium 2.6 mg/dL (1.6-2.6) 08/25/22 10:10 BUN 13 mg/dL (7-18) 01/22/24 07:47 Creatinine 0.72 mg/dL (0.55-1.02) 01/22/24 07:47 Glucose 161 mg/dL (74-106) H 01/22/24 07:47 POC Glucose 311 mg/dL (74-106) H 09/14/22 14:16 TSH 0.72 uIU/mL (0.358-3.74) 07/03/22 11:50 COAG Review of Systems (Anesthesia) ROS Narrative System reviewed and no additional complaints, except as documented. [facility] Medical History History of IBS History of Holter monitoring Diabetes mellitus Nonischemic cardiomyopathy Coronary artery disease History of echocardiogram Cardiology follow-up encounter Hypertension Obesity Preop cardiovascular exam Abnormal ECG Vaginal candidiasis Esophageal stenosis Hyperlipidemia Type 2 diabetes mellitus with hyperglycemia, with long-term current use of insulin Essential (primary) hypertension Post-menopausal Arthritis Gastritis Esophageal candidiasis PONV (postoperative nausea and vomiting) History of COVID-19 Papilloma of right breast Anxiety Alcohol use Insulin dependent diabetes mellitus Bladder disease High cholesterol Back pain Injury of head and neck Migraine headache Dietary restriction Gastric reflux Asthma Former smoker Shortness of breath on exertion CPAP (continuous positive airway pressure) dependence History of pain when walking History of edema History of stress test Intraductal papillary carcinoma Breast mass, right Rheumatoid arthritis Nausea Hx of colonic polyp History of needle biopsy Lumbar degenerative disc disease Morbid obesity Localized osteoarthritis of left knee Idiopathic hypersomnia without long sleep time Cyst of bone Chronic bronchitis Allergic rhinitis IBS (irritable bowel syndrome) Depression, endogenous Thyroid nodule Tension headache, chronic Mixed hypercholesterolemia and hypertriglyceridemia GERD (gastroesophageal reflux disease) Diabetes COVID-19 Home Medications ?Medication ?Instructions ?Recorded ?Last Taken ?Type meloxicam 15 mg tablet (Mobic) 15 mg PO DAILY INFLAMATION 09/09/14 Unknown History atorvastatin 20 mg tablet 20 mg PO QHS HLD 08/25/21 Unknown History fluticasone furoate 100 1 inh inhalation DAILY BREATHING 08/25/21 Unknown History mcg-vilanterol 25 mcg/dose inhalation powder (Breo Ellipta) pantoprazole 40 mg tablet,delayed 40 mg PO DAILY GERD 08/25/21 03/20/24 History release sucralfate 1 gram tablet 1 g PO TID GERD 08/25/21 Unknown History mometasone 0.1 % topical cream 1 applic topical DAILY PRN SCALP 12/12/21 Unknown History PSORIASIS empagliflozin 25 mg tablet 25 mg PO DAILY DM 06/29/22 Unknown History (Jardiance) ammonium lactate 12 % lotion 1 applic topical DAILY PRN dry skin 07/08/22 Unknown History methocarbamol 500 mg tablet 500 mg PO TID back spasms 07/08/22 Unknown History aspirin 81 mg tablet,delayed 81 mg PO DAILY 07/21/22 03/16/24 History release (Adult Aspirin Regimen) albuterol sulfate 90 mcg/actuation 2 puff inhalation Q4H PRN 12/22/23 Unknown History aerosol inhaler (Ventolin HFA) shortness of breath or wheezing ketoconazole 2 % shampoo 1 applic topical PRN 12/22/23 Unknown History tramadol 50 mg tablet 50 mg PO 4X/DAY PRN pain 12/22/23 Unknown History metoprolol tartrate 25 mg tablet 25 mg PO BID #180 tabs 01/21/24 03/20/24 Rx sacubitril 24 mg-valsartan 26 mg 1 tab PO BID #180 tabs 01/21/24 Unknown Rx tablet (Entresto) escitalopram oxalate 10 mg tablet 10 mg PO DAILY 01/28/24 Unknown History insulin glargine U-300 conc 300 36 unit subcut QHS 01/28/24 Unknown History unit/mL (1.5 mL) subcutaneous pen ([employer] SoloStar U-300 Insulin) semaglutide 0.25 mg or 0.5 mg (2 2 mg subcut QWEEK DM 01/28/24 03/11/24 History mg/1.5 mL) subcutaneous pen injector (Ozempic) Allergy/AdvReac Type Severity Reaction Status Date / Time hydrocodone (From Vicodin) AdvReac Mild Nausea Verified 03/20/24 06:32 propoxyphene AdvReac Mild Nausea Verified 03/20/24 06:32 codeine AdvReac Upset Verified 03/20/24 06:32 Stomach Family History Mother , [place], age 59 Sudden cardiac Myocardial infarction Hypertension Heart disease High cholesterol Father , multiple myeloma, age 50 Cancer multiple myeloma Brother Hypertension Depression Sister Hypertension Unknown Colon cancer, Onset Age: 40 Several Paternal cousins with Colon cancer in their 40's Surgical History History of implantable cardiac defibrillator (ICD) History of knee replacement History of cardiac catheterization History of esophagogastroduodenoscopy (EGD) History of breast lump/mass excision History of right breast biopsy (~12/2021) History of back surgery (~1975) Hx of colonoscopy (~2020) S/P meniscectomy (~06/2012) History of carpal tunnel release Social History household members: spouse Smoking Status: Former smoker quit date: 06/13/02 pack-years: 10 Tobacco: How many years used: 10 alcohol intake: current alcohol intake frequency: holidays/special occasions only substance use type: does not use caffeine: Yes Type: coffee Number of servings: 1
--- NOTE | 2024-03-20 07:02 | HP.PCM_ITS ---
[facility] - General General Date of Admission: 03/20/24 Date of Service: 03/20/24 Chief Complaint: Screening colonoscopy [facility] Mackenzie FLAHERTY, is a 59 F who presents today for screening colonoscopy. She had a colonoscopy in 2000 where she had multiple polyps removed during that time. She carries a past medical history of CAD, nonischemic cardiomyopathy, diabetes, hypertension, hyperlipidemia, type 2 diabetes and mild gastroesophageal reflux disease. She is not having any problems at this time. Blood pressure stable on she does not have any nausea. She does take aspirin 81 mg on a daily basis along with insulin. She was started on semaglutide also recently. She been tolerating it without any problems. [facility] Medical History History of IBS History of Holter monitoring Diabetes mellitus Nonischemic cardiomyopathy Coronary artery disease History of echocardiogram Cardiology follow-up encounter Hypertension Obesity Preop cardiovascular exam Abnormal ECG Vaginal candidiasis Esophageal stenosis Hyperlipidemia Type 2 diabetes mellitus with hyperglycemia, with long-term current use of insulin Essential (primary) hypertension Post-menopausal Arthritis Gastritis Esophageal candidiasis PONV (postoperative nausea and vomiting) History of COVID-19 Papilloma of right breast Anxiety Alcohol use Insulin dependent diabetes mellitus Bladder disease High cholesterol Back pain Injury of head and neck Migraine headache Dietary restriction Gastric reflux Asthma Former smoker Shortness of breath on exertion CPAP (continuous positive airway pressure) dependence History of pain when walking History of edema History of stress test Intraductal papillary carcinoma Breast mass, right Rheumatoid arthritis Nausea Hx of colonic polyp History of needle biopsy Lumbar degenerative disc disease Morbid obesity Localized osteoarthritis of left knee Idiopathic hypersomnia without long sleep time Cyst of bone Chronic bronchitis Allergic rhinitis IBS (irritable bowel syndrome) Depression, endogenous Thyroid nodule Tension headache, chronic Mixed hypercholesterolemia and hypertriglyceridemia GERD (gastroesophageal reflux disease) Diabetes COVID-19 Home Medications ?Medication ?Instructions ?Recorded ?Last Taken ?Type meloxicam 15 mg tablet (Mobic) 15 mg PO DAILY INFLAMATION 09/09/14 Unknown History atorvastatin 20 mg tablet 20 mg PO QHS HLD 08/25/21 Unknown History fluticasone furoate 100 1 inh inhalation DAILY BREATHING 08/25/21 Unknown History mcg-vilanterol 25 mcg/dose inhalation powder (Breo Ellipta) pantoprazole 40 mg tablet,delayed 40 mg PO DAILY GERD 08/25/21 03/20/24 History release sucralfate 1 gram tablet 1 g PO TID GERD 08/25/21 Unknown History mometasone 0.1 % topical cream 1 applic topical DAILY PRN SCALP 12/12/21 Unknown History PSORIASIS empagliflozin 25 mg tablet 25 mg PO DAILY DM 06/29/22 Unknown History (Jardiance) ammonium lactate 12 % lotion 1 applic topical DAILY PRN dry skin 07/08/22 Unknown History methocarbamol 500 mg tablet 500 mg PO TID back spasms 07/08/22 Unknown History aspirin 81 mg tablet,delayed 81 mg PO DAILY 07/21/22 03/16/24 History release (Adult Aspirin Regimen) albuterol sulfate 90 mcg/actuation 2 puff inhalation Q4H PRN 12/22/23 Unknown History aerosol inhaler (Ventolin HFA) shortness of breath or wheezing ketoconazole 2 % shampoo 1 applic topical PRN 12/22/23 Unknown History tramadol 50 mg tablet 50 mg PO 4X/DAY PRN pain 12/22/23 Unknown History metoprolol tartrate 25 mg tablet 25 mg PO BID #180 tabs 01/21/24 03/20/24 Rx sacubitril 24 mg-valsartan 26 mg 1 tab PO BID #180 tabs 01/21/24 Unknown Rx tablet (Entresto) escitalopram oxalate 10 mg tablet 10 mg PO DAILY 01/28/24 Unknown History insulin glargine U-300 conc 300 36 unit subcut QHS 01/28/24 Unknown History unit/mL (1.5 mL) subcutaneous pen ([employer] SoloStar U-300 Insulin) semaglutide 0.25 mg or 0.5 mg (2 2 mg subcut QWEEK DM 01/28/24 03/11/24 History mg/1.5 mL) subcutaneous pen injector (Ozempic) Allergy/AdvReac Type Severity Reaction Status Date / Time hydrocodone (From Vicodin) AdvReac Mild Nausea Verified 03/20/24 06:32 propoxyphene AdvReac Mild Nausea Verified 03/20/24 06:32 codeine AdvReac Upset Verified 03/20/24 06:32 Stomach Family History Mother , [place], age 59 Sudden cardiac Myocardial infarction Hypertension Heart disease High cholesterol Father , multiple myeloma, age 50 Cancer multiple myeloma Brother Hypertension Depression Sister Hypertension Unknown Colon cancer, Onset Age: 40 Several Paternal cousins with Colon cancer in their 40's Surgical History History of implantable cardiac defibrillator (ICD) History of knee replacement History of cardiac catheterization History of esophagogastroduodenoscopy (EGD) History of breast lump/mass excision History of right breast biopsy (~12/2021) History of back surgery (~1975) Hx of colonoscopy (~2020) S/P meniscectomy (~06/2012) History of carpal tunnel release Social History household members: spouse Smoking Status: Former smoker quit date: 06/13/02 pack-years: 10 Tobacco: How many years used: 10 alcohol intake: current alcohol intake frequency: holidays/special occasions only substance use type: does not use caffeine: Yes Type: coffee Number of servings: 1 ROS Review of Systems ROS Unobtainable: other Constitutional Constitutional: Denies fatigue, fever(s), poor appetite, weight gain or weight loss ENT HEENT: Denies mouth lesions Cardiovascular Cardiovascular: Denies abdominal bloating, abdominal edema or abdominal pain Respiratory/Chest Respiratory/Chest: Denies change in mental status, change in phlegm color, chest congestion or chest tightness Gastrointestinal Gastrointestinal: Denies belching, bloating, change in bowel habits, change in stool character, chewing difficulty, coffee ground emesis, constipation, cramping, diarrhea, dyspepsia, dysphagia, early satiety, excessive flatus, fecal incontinence, heartburn, hematemesis, hematochezia, hemorrhoids, loose stools, melena, nausea, odynophagia, rectal bleeding, tenesmus, vomiting or weight changes Genitourinary Genitourinary: Denies abdominal discomfort, burning urination or itching Musculoskeletal Musculoskeletal: Reports as per HPI; Denies muscle weakness or myalgias Integumentary Integumentary: Denies jaundice Neurologic Neurologic: Denies lack of coordination or weakness Psychiatric Psychiatric: Denies confusion, depression, memory loss, mood swings, paranoia or suicidal ideation Endocrine Endocrinology: Denies systems reviewed and no addt'l complaints, except as documented Hematologic/Lymphatic Hematologic/Lymphatic: Denies anemia, easy bleeding, easy bruising or lymphadenopathy Allergic/Immunologic Allergic/Immunologic: Denies systems reviewed and no addt'l complaints, except as documented Vital Signs Vital Signs Vital Signs: 03/20/24 06:37 03/20/24 06:37 03/20/24 06:51 Temperature 97.7 F L 97.7 F L Temperature Source Temporal Pulse Rate 68 68 Respiratory Rate 16 16 Respiratory Pattern Normal Blood Pressure 152/81 H 152/81 H Blood Pressure Mean 104 Blood Pressure Source Monitor Blood Pressure Position Semi-Fowlers Blood Pressure Location Right Arm Pulse Ox 99 99 Oxygen Delivery Method Room Air Weight Weight: 173 lb 4.533 oz Body Mass Index (BMI) 31.6 Physical Exam Const alert General Appearance: cooperative Orientation / Consciousness: oriented to person HEENT hearing grossly normal bilaterally Head and Scalp: normal to inspection Face and Sinus: face symmetric Nose: external nose normal Mouth: oral and palatal mucosa normal Eyes conjunctivae normal General Eye: normal appearance of both eyes Neck full ROM General: normal visual inspection Lymph Lymphatic: no lymphadenopathy noted Chest inspection of chest normal and palpation of chest normal Chest: symmetrical chest wall rise Resp normal respiratory effort Effort and Inspection: able to speak in complete sentences Cardio regular rate GI non-distended Percussion: normal to percussion Rectal Exam: deferred Neuro Speech: speech normal Gait (Neuro): normal gait Assessment & Plan Assessment/Plan (1) Encounter for screening for malignant neoplasm of colon: PLAN: She was explained alternatives, risk, benefits including not withstanding bleeding, infection, sepsis, perforation, need for emergent urgent . She will have an ASA of 3.
--- NOTE | 2024-03-20 07:27 | PCM.POST.ANE ---
Anesthesia: Postop Eval I Current Vital Signs Temperature: 97 F Pulse Rate: 60 Blood Pressure: 99/58 Respiratory Rate: 16 Pulse Ox: 98 Oxygen Delivery Method: Room Air Assessment Airway patent: Yes Spontaneous unlabored respirations: Yes Mental status: Asleep nausea: No Vomiting: No Anesthesia Complication: No Fluid Hydration Crystalloid volume administer (ml): 600 Total IV fluid infused: 600 Progress Note Anesthesia document: Postop Eval 1 completed: Yes
--- NOTE | 2024-03-20 07:30 | OP.COLON_ITS ---
Patient Name: Rhonda Powell Procedure Date: 03/20/2024 7:05 AM Date of : 1965 Age: 59 Procedure: Colonoscopy Indications: Follow-up for history of adenomatous polyps in the colon Providers: Yunior Robles DO Medicines: Monitored Anesthesia Care Patient Profile: This is a 59 year old female. Refer to note in patient chart for documentation of history and physical. Last Colonoscopy: 3 years ago. Complications: No immediate complications. Procedure: Pre-Anesthesia Assessment: - Prior to the procedure, a History and Physical was performed, and patient medications and allergies were reviewed. The patient is competent. The risks and benefits of the procedure and the sedation options and risks were discussed with the patient. All questions were answered and informed consent was obtained. Patient identification and proposed procedure were verified by the physician in the pre-procedure area. Mental Status Examination: alert and oriented. Airway Examination: normal oropharyngeal airway and neck mobility. Respiratory Examination: clear to auscultation. CV Examination: normal. Prophylactic Antibiotics: The patient does not require prophylactic antibiotics. Prior Anticoagulants: The patient has taken no anticoagulant or antiplatelet agents. ASA Grade Assessment: II - A patient with mild systemic disease. After reviewing the risks and benefits, the patient was deemed in satisfactory condition to undergo the procedure. The anesthesia plan was to use monitored anesthesia care (MAC). Immediately prior to administration of medications, the patient was re-assessed for adequacy to receive sedatives. The heart rate, respiratory rate, oxygen saturations, blood pressure, adequacy of pulmonary ventilation, and response to care were monitored throughout the procedure. The physical status of the patient was re-assessed after the procedure. After I obtained informed consent, the scope was passed under direct vision. Throughout the procedure, the patient's blood pressure, pulse, and oxygen saturations were monitored continuously. The colonoscope was introduced through the anus and advanced to the cecum, identified by appendiceal orifice and ileocecal valve. The colonoscopy was performed without difficulty. The patient tolerated the procedure well. The quality of the bowel preparation was adequate. The ileocecal valve, appendiceal orifice, and rectum were photographed. Scope In: 7:11:56 AM Scope Withdrawal Time 0 hours 7 minutes 49 seconds Scope Out: 7:23:21 AM Total Procedure Duration Time 0 hours 11 minutes 25 seconds Findings: The perianal and digital rectal examinations were normal. Multiple small and large-mouthed diverticula were found in the recto-sigmoid colon and sigmoid colon. The exam was otherwise without abnormality on direct and retroflexion views. Impression: - Diverticulosis in the recto-sigmoid colon and in the sigmoid colon. - The examination was otherwise normal on direct and retroflexion views. - No specimens collected. Recommendation: - Discharge patient to home. - Resume previous diet. - Continue present medications. - Repeat colonoscopy in 5 years for surveillance. Procedure Code(s): --- Professional --- 11350, Colonoscopy, flexible; diagnostic, including collection of specimen(s) by brushing or washing, when performed (separate procedure) CPT copyright 2021 [employer]. All rights reserved. The codes documented in this report are preliminary and upon home care giver review may be revised to meet current compliance requirements. Yunior Robles DO 03/20/2024 7:29:46 AM This report has been signed electronically. Number of Addenda: 0 Note Initiated On: 03/20/2024 7:05 AM
--- NOTE | 2024-03-20 07:30 | OP.CCLET_ITS ---
03/20/2024 [facility] Leon Re : Colonoscopy procedure for Rhonda [place] Leon This procedure was performed on Wednesday, March 20, 2024. My impressions and recommendations are as follows: Impressions : - Diverticulosis in the recto-sigmoid colon and in the sigmoid colon. - The examination was otherwise normal on direct and retroflexion views. - No specimens collected. Recommendations : - Discharge patient to home. - Resume previous diet. - Continue present medications. - Repeat colonoscopy in 5 years for surveillance. My findings are described in the full procedure note, which is enclosed. If I can be of further assistance, please feel free to contact me at . Sincerely, Yunior Robles, 03/20/2024 7:29:46 AM This report has been signed electronically.
[2024-03-20 07:47] LABS: Bedside Glucose 147 mg/dL (74-106)
--- NOTE | 2024-03-20 13:02 | PCM.POSTANE2 ---
Anesthesia Postop Eval I Sum Postop Eval Completion status Anesthesia document: Postop Eval 1 completed: Yes Anesthesia Postop Eval I Summary Anesthesia Postop Eval I Summary: Anesthesia Postop Eval I: Assessment Summary Airway patent Yes 03/20/24 07:30 [email or web address] Spontaneous unlabored Yes 03/20/24 07:30 [email or web address] respirations Mental status Asleep 03/20/24 07:30 [email or web address] nausea No 03/20/24 07:30 [email or web address] Vomiting No 03/20/24 07:30 [email or web address] Anesthesia Postop Eval I: Fluid Summary Crystalloid volume administer 600 03/20/24 07:30 [email or web address] (ml) Colloids volume administered ( ml) Blood Product volume administered (ml) Total IV fluid infused 600 03/20/24 07:30 [email or web address] Anesthesia Postop Eval I: Summary Notes Anesthesia Complication No 03/20/24 07:30 [email or web address] Anesthesia Complication Comment: Post-operative progress note Anesthesia: Postop Eval II Evaluation Mental status: Awake and Calm Pain Level: 0 nausea: No Vomiting: No Complications Anesthesia Complication: No
== END 2024-03-20 07:57 | disposition home or self-care (01) ==
LOC: EN 06:18 → AC 06:18
PROVIDERS: PCP Family Medicine; Referring Provider Family Medicine; Visit Provider Internal Medicine Gastroenterology
PROC: 0DJD8ZZ Inspection of Lower Intestinal Tract, Via Natural or Artificial Opening Endoscopic (ICD-10-PCS; CPT 45378; principal; 2024-03-20 07:25)
DX: Z12.11 Encounter for screening for malignant neoplasm of colon (principal); F33.2 Major depressive disorder, recurrent severe without psychotic features; I42.8 Other cardiomyopathies; Z79.4 Long term (current) use of insulin; E11.9 Type 2 diabetes mellitus without complications; K57.30 Diverticulosis of large intestine without perforation or abscess without bleeding; J45.909 Unspecified asthma, uncomplicated; K21.9 Gastro-esophageal reflux disease without esophagitis; I10 Essential (primary) hypertension; I25.10 Atherosclerotic heart disease of native coronary artery without angina pectoris; E78.00 Pure hypercholesterolemia, unspecified; Z79.84 Long term (current) use of oral hypoglycemic drugs; Z79.82 Long term (current) use of aspirin; Z79.899 Other long term (current) drug therapy; Z79.51 Long term (current) use of inhaled steroids; Z86.010 Personal history of colon polyps; Z86.16 Personal history of COVID-19; Z95.810 Presence of automatic (implantable) cardiac defibrillator; Z80.0 Family history of malignant neoplasm of digestive organs; Z87.891 Personal history of nicotine dependence
CPT/HCPCS: 45378; 82962; J7120; J2405

== ENCOUNTER → 2024-08-11 | Outpatient (CLI) | payer OTHER, SELFPAY ==
--- NOTE | 2024-08-11 09:33 | BI_ITS ---
MAMMOGRAPHY - BILATERAL DIAGNOSTIC REASON FOR EXAM: Female, 59 years old. Recent pacemaker placement and the palpable lump in the region of the left axilla. PERTINENT HISTORY: Non-contributory. TECHNIQUE: Digital bilateral breast alvin (3D mammographic acquisition) in the CC and MLO projections. 2-D mediolateral oblique (MLO) and craniocaudad (CC) views of both breasts were obtained. CAD: Full Field Digital Mammography with Computer Added Detection was performed. COMPARISON: Comparison is made with prior study of January 20, 2024 and December 19, 2021. FINDINGS: Breast Composition: The breasts are heterogeneously dense, which may obscure small masses. There are no dominant masses or suspicious calcifications. A battery pack from a pacemaker seen in the left axilla. No other significant abnormalities are identified. BI/DIAG MAMM W/CAD, BILAT IMPRESSION: Stable bilateral diagnostic mammogram. With the patient''s history of a palpable lump in the left axilla, correlation with ultrasound recommended. ASSESSMENT CATEGORY: BIRADS Category 0: Incomplete. Need additional imaging evaluation. A letter regarding these results will be sent to the patient by the facility within 30 days. Approximately 10% of breast cancers are not detected by mammography. A normal mammogram should not delay biopsy of a clinically suspicious abnormality. Electronically Signed: Evans Wall MD at 10:55 EST ,
--- NOTE | 2024-08-11 10:41 | US_ITS ---
STUDY: ULTRASOUND BREAST - LEFT REASON FOR EXAM: Female, 59 years old. Palpable left axillary lump. Scar from recent pacemaker placement. TECHNIQUE: Axial and longitudinal images of the LEFT breast were performed with a high resolution ultrasound transducer. # OF IMAGES: 34 COMPARISON: Comparison is made with prior mammogram done earlier today. FINDINGS: LEFT Breast: A battery pack from a pacemaker device is seen in the left axilla. Incidental note is made of a 2.1 cm x 2.3 cm x 0.7 cm lymph node with a central fatty hilum in the left axilla. Adjacent to this, there is also evidence of a 3.5 cm x 2.6 cm x 1.6 cm hypoechoic fluid collection most likely attempting post operative resolving hematoma. US/Breast Limited Unilateral IMPRESSION: Findings suggestive of benign appearing lymph node in the left axilla as well as a 3.5 cm x 2.6 cm x 1.6 cm fluid collection most likely representing a post procedure hematoma. ASSESSMENT CATEGORY: BIRADS Category 2: Benign. A letter regarding these results will be sent to the patient by the facility within 30 days. Electronically Signed: Evans Wall MD at 11:38 EST ,
== END | disposition home or self-care (01) ==
LOC: OPBI 09:31
PROVIDERS: PCP Family Medicine; Referring Provider Family Medicine; Visit Provider Family Medicine
DX: N63.20 Unspecified lump in the left breast, unspecified quadrant (principal)
CPT/HCPCS: 76642; 77062; 77066; G0279

== ENCOUNTER → 2024-09-02 | Outpatient (CLI) | payer OTHER, SELFPAY ==
[2024-09-02 11:08] LABS: Cholesterol 170 mg/dL (200); High Density Lipoprotein 48 mg/dL; Triglycerides 176 mg/dL; Very Low Density Lipoprotein 35 mg/dL (5-40)
[2024-09-02 11:14] LABS: ALB/GLOB Ratio 1.1 RATIO (0.9-2.4); AST(SGOT) 17 U/L (15-37); Alanine Aminotransfer ALT/SGPT 22 U/L (13-56); Alkaline Phosphatase 120 U/L (45-117); Anion Gap 6 (5-15); BUN 15 mg/dL (7-18); BUN/Creat Ratio 24.6 RATIO (10-20); Calcium,Total 9.5 mg/dL (8.5-10.1); Chloride 106 mmol/L (98-107); Creatinine, Serum 0.61 mg/dL (0.55-1.02); EST Glomerular Filtration Rate 106 mL/min (>60); Est Glom Filt Rate - Afr Amer 129 mL/min (>60); Globulin 3.6 g/dL (2.2-4.2); Glucose 133 mg/dL (74-106); Potassium 4.7 mmol/L (3.5-5.1); Protein, Total 7.6 g/dL (6.4-8.2); Sodium Level 139 mmol/L (136-145)
[2024-09-02 11:34] LABS: Microalbumin:Creatinine Ratio 262.4 mg/g CRE (<30 mg/g CRE)
== END | disposition home or self-care (01) ==
LOC: LAB 09:14
PROVIDERS: Physician Assistant Medical; PCP Family Medicine; Referring Provider Internal Medicine Cardiovascular Disease; Visit Provider Internal Medicine Cardiovascular Disease
DX: E11.65 Type 2 diabetes mellitus with hyperglycemia (principal); Z79.4 Long term (current) use of insulin; E11.29 Type 2 diabetes mellitus with other diabetic kidney complication; R80.9 Proteinuria, unspecified; E78.00 Pure hypercholesterolemia, unspecified
CPT/HCPCS: 80053; 80061; 82043; 82570